=== PATIENT | male | born 1990 | race Caucasian/White ===

== ENCOUNTER 2021-08-26 21:12 | Inpatient (IN) | payer OTHER, SELFPAY ==
--- NOTE | ~2021-08-26 | FL_ITS ---
EXAMINATION: XR FLUOROSCOPY WITH IMAGES CLINICAL INFORMATION: Right renal stone COMPARISON: Abdomen CT from 08/26/2021 TECHNIQUE: Fluoroscopy performed by Dr. Joaquin Wilson. Fluoroscopy time: 48.2 seconds Dose: 17.95 mGy Images: 1 image is saved from the procedure. FL/FL guidance in OR FINDINGS AND IMPRESSION: No diagnostic images are provided. Please refer to the urology procedure report. The image presented was acquired after right ureteral stent placement.
--- NOTE | ~2021-08-26 | CT_ITS ---
EXAMINATION: CT ABDOMEN AND PELVIS WITH CONTRAST CLINICAL INFORMATION: Flank pain. COMPARISON: None TECHNIQUE: Multidetector volumetric images were obtained from the superior aspect of the liver through the pubic symphysis following administration 85 mL of Omnipaque 350 intravenous contrast. Sagittal and coronal reformatted images were obtained on the technologist's workstation. Oral contrast: No This CT examination was performed using dose optimization techniques as appropriate, variously including the following: *Automated exposure control *Adjustment of mA and/or kV according to patient size (this includes techniques or standardized protocols for targeted exams where dose is matched to indication/reason for exam; i.e. extremities or head) *Use of iterative reconstruction technique DLP: 750 mGy-cm FINDINGS: LUNG BASES: The visualized lung bases are unremarkable. LIVER, GALLBLADDER, AND BILIARY TREE: The liver is normal in size, shape, and attenuation. No focal hepatic lesion or biliary ductal dilatation is present. The gallbladder is unremarkable with no evidence of radiopaque gallstones, gallbladder wall thickening, or obvious pericholecystic inflammatory changes. PANCREAS: Unremarkable. SPLEEN: Unremarkable. ADRENAL GLANDS: Unremarkable. KIDNEYS AND URETERS: The kidneys are normal in size, shape, and attenuation. There is a 0.7 cm stone within the mid right ureter at the level of the L5-S1 intervertebral disc. This measures approximately 560 Hounsfield units and is located 15.7 cm from the posterior axillary line. There is mild proximal hydroureteronephrosis with mild delayed contrast excretion at the right kidney. No additional renal or ureteral stone is identified. No left-sided hydroureteronephrosis. BLADDER: Partially distended and unremarkable. GASTROINTESTINAL TRACT: No bowel wall thickening or associated inflammatory change. No small or large bowel obstruction. Unremarkable appendix. PERITONEAL CAVITY: No intra-abdominal free air or free fluid. No intra-abdominal mass or organized fluid collection/abscess formation. ABDOMINAL WALL: No significant hernia is appreciated. LYMPH NODES: Normal. VASCULAR: Unremarkable. PELVIC VISCERA: The prostate and seminal vesicles are unremarkable. OSSEOUS STRUCTURES: Unremarkable. CT/CT abdomen pelvis w con IMPRESSION: Mid/distal right ureteral stone measuring up to 0.7 cm the level of the L5-S1 intervertebral disc. Mild proximal hydroureteronephrosis with delayed contrast excretion on the right. No additional renal or ureteral stone. No left-sided hydroureteronephrosis. Fleischner guidelines were followed.
[2021-08-26 21:22] VITALS: BP 171/92; PULSE 64; RESP 20; TEMP 36.4; O2SAT 99; BMI 35.2
[2021-08-26 21:36] LABS: MANUAL DIFF FLAG NO
[2021-08-26 21:38] LABS: Basophils Absolute Auto 0.1 X10*3/uL (0.0-0.2); Basophils Percent Auto 0.6 % (0-2); Eosinophils Absolute Auto 0.1 X10*3/uL (0.0-0.4); Eosinophils Percent Auto 0.9 % (0-4); Hematocrit 41.2 % (42.0-52.0); Hemoglobin 13.7 g/dl (14.0-18.0); Imm Gran Abs Auto 0.04 X10*3/uL (0.00-0.03); Imm Gran Pct Auto 0.3 % (0.0-0.4); Lymphocytes Percent Auto 29.8 % (20-40); Mean Corpuscular HGB Conc 33.3 g/dl (31.0-36.0); Mean Corpuscular Hemoglobin 29.8 pg (27.0-33.0); Mean Corpuscular Volume 89.6 fL (80.0-98.0); Mean Platelet Volume 9.1 fL (9.4-12.4); Monocytes Absolute Auto 1.1 X10*3/uL (0.1-1.2); Monocytes Percent Auto 8.1 % (2-11); Neutrophils Absolute Auto 8.2 x10*3/uL (2.0-8.3); Neutrophils Percent Auto 60.3 % (45-73); Platelet Count 316 X10*3/uL (160-400); Red Cell Distribution Width 12.7 % (11.0-16.0); White Blood Count 13.5 X10*3/uL (4.8-10.8)
[2021-08-26 21:58] LABS: Alanine Aminotransferase 25 U/L (0-40); Albumin Level 4.6 g/dL (3.5-5.0); Alkaline Phosphatase 86 U/L (39-117); Anion Gap 15 (12-20); Aspartate Amino Transferase 21 U/L (5-37); Bilirubin Total 0.3 mg/dL (0.0-1.0); Blood Urea Nitrogen 14 mg/dL (9-16); Calcium 9.4 mg/dL (8.4-10.2); Carbon Dioxide 26 mmol/L (22-29); Chloride 103 mmol/L (96-108); Estimated Glomerular Filt Rate 53; Glucose Random 114 mg/dL (60-115); Potassium 4.1 mmol/L (3.3-5.1); Sodium 140 mmol/L (135-145); Total Protein 7.4 g/dL (6.5-8.0)
[2021-08-26] MEDS: iohexoL 350 MG/ML 100 ML INFUS..BTL IV (22:28)
[2021-08-26 22:33] LABS: COVID-19 Test Negative (Negative)
[2021-08-26] MEDS: 0.9 % Sodium Chloride 1,000 ML 999 ML IV (22:34)
[2021-08-26] MEDS: Ketorolac Tromethamine 30 MG/ML VIAL 15 MG IVPUSH (22:34)
[2021-08-26] MEDS: ondansetron HCL 4 MG/2 ML VIAL IVPUSH (22:35)
[2021-08-26] MEDS: Acetaminophen 325 MG TABLET 975 MG PO (22:37)
[2021-08-26] MEDS: fentaNYL citrate/PF 100 MCG/2 ML VIAL 25 MCG IVPUSH (23:34)
[2021-08-26 23:40] VITALS: BP 150/71; RESP 16
--- NOTE | 2021-08-26 23:41 | ED.ABDPAIN ---
HPI - Abdominal Pain General Chief Complaint: Abdominal Pain Stated Complaint: Abdominal Pain Time Seen by Provider: 08/26/21 22:04 Source: patient Mode of arrival: ambulatory History of Present Illness HPI narrative: this is a 31-year-old male with history of renal colic and presents with right-sided abdominal pain that is been ongoing for approximately 1.5 weeks and associated chills as well as intermittent nausea and vomiting and difficulty with urinating. Related Data Allergies Allergy/AdvReac Type Severity Reaction Status Date / Time penicillin V Allergy Rash Verified 08/26/21 21:21 Penicillins Allergy Rash Verified 08/26/21 21:21 Review of Systems Review of Systems Pertinent positives and negatives as stated in HPI 10 point review of systems is otherwise negative. Physical Exam Vital Signs: Vital Signs: Last Vital Signs Temp 97.5 F 08/26/21 21:22 Pulse 64 08/26/21 21:22 Resp 16 08/26/21 23:40 BP 150/71 H 08/26/21 23:40 Pulse Ox 99 08/26/21 21:22 BMI result Body Mass Index 35.2 VITAL SIGNS: Reviewed. GENERAL: Well developed, well nourished, in no acute distress. HEAD: Normocephalic/atraumatic EYES: PERRLA, EOMI OROPHARYNX: no oral lesions noted, posterior pharynx clear LUNGS: Normal breath sounds. No adventitious sounds or accessory muscle use. SpO2<99> CARDIOVASCULAR: Regular rate and rhythm without noted murmurs ABDOMEN: Soft, non-tender, non-distended with bowel sounds, Flank tenderness NEUROLOGIC: Alert and oriented x 4. Strength and sensation to light touch were grossly intact x 4. Course Course Course Narrative: 31-year-old male with history and clinical presentation consistent with renal colic and a review of all investigations patient has noted LISBETH with difficulty on urination and noted mid distal ureterolithiasis. Combination pain regimen administered as well as IV fluids and will speak with the urologist. 0015: suspect infection. Review of all investigations demonstrates ureterolithiasis with corresponding LISBETH and leukocytosis. I discussed this case with Urology who recommends admission to medicine and will follow up with patient in the morning. I discussed with the inpatient hospitalist who accepts admission. MDM - Abdominal Pain Lab Data Result diagrams: 08/26/21 21:31 08/26/21 21:31 Labs: Lab Results 08/26/21 08/26/21 08/26/21 Range/Units 21:31 21:31 22:10 WBC 13.5 H (4.8-10.8) X10*3/uL RBC 4.60 (4.60-5.80) X10*6/uL Hgb 13.7 L (14.0-18.0) g/dl Hct 41.2 L (42.0-52.0) % MCV 89.6 (80.0-98.0) fL MCH 29.8 (27.0-33.0) pg MCHC 33.3 (31.0-36.0) g/dl RDW 12.7 (11.0-16.0) % Plt Count 316 (160-400) X10*3/uL MPV 9.1 L (9.4-12.4) fL Immature Gran % (Auto) 0.3 (0.0-0.4) % Neut % (Auto) 60.3 (45-73) % Lymph % (Auto) 29.8 (20-40) % [place] % (Auto) 8.1 (2-11) % Eos % (Auto) 0.9 (0-4) % Baso % (Auto) 0.6 (0-2) % Lymph # (Auto) 4.0 (1.2-4.9) X10*3/uL [place] # (Auto) 1.1 (0.1-1.2) X10*3/uL Eos # (Auto) 0.1 (0.0-0.4) X10*3/uL Baso # (Auto) 0.1 (0.0-0.2) X10*3/uL Abs Immat Gran (auto) 0.04 H (0.00-0.03) X10*3/uL Absolute Neuts (auto) 8.2 (2.0-8.3) x10*3/uL Absolute Nucleated RBC 0.000 (0.0-0.012) X10*3/uL Nucleated RBC % (auto) 0.0 (0.0-0.2) /100WBC Sodium 140 (135-145) mmol/L Potassium 4.1 (3.3-5.1) mmol/L Chloride 103 (96-108) mmol/L Carbon Dioxide 26 (22-29) mmol/L Anion Gap 15 (12-20) BUN 14 (9-16) mg/dL Creatinine 1.55 H (0.5-1.4) mg/dL Estim Creat Clear Calc 80.0 Estimated GFR 53 Random Glucose 114 (60-115) mg/dL Calcium 9.4 (8.4-10.2) mg/dL Total Bilirubin 0.3 (0.0-1.0) mg/dL AST 21 (5-37) U/L ALT 25 (0-40) U/L Alkaline Phosphatase 86 (39-117) U/L Total Protein 7.4 (6.5-8.0) g/dL Albumin 4.6 (3.5-5.0) g/dL Urine Color Urine Appearance Urine pH (5.0-8.0) Ur Specific [place] (1.005-1.025) Urine Protein (NEG-TRACE) MG/DL Urine Glucose (UA) (NEG) MG/DL Urine Ketones (NEG) MG/DL Urine Blood (NEG) Urine Nitrite (NEG) Ur Leukocyte Esterase (NEG) Urine RBC (0) /HPF Urine WBC (0-4) /HPF Ur Squamous Epith Cells /LPF Urine Bacteria /LPF Urine Mucus /LPF COVID-19 (GIAN) Negative (Negative) COVID-19 Clin Com See Note 08/26/21 Range/Units 23:48 WBC (4.8-10.8) X10*3/uL RBC (4.60-5.80) X10*6/uL Hgb (14.0-18.0) g/dl Hct (42.0-52.0) % MCV (80.0-98.0) fL MCH (27.0-33.0) pg MCHC (31.0-36.0) g/dl RDW (11.0-16.0) % Plt Count (160-400) X10*3/uL MPV (9.4-12.4) fL Immature Gran % (Auto) (0.0-0.4) % Neut % (Auto) (45-73) % Lymph % (Auto) (20-40) % [place] % (Auto) (2-11) % Eos % (Auto) (0-4) % Baso % (Auto) (0-2) % Lymph # (Auto) (1.2-4.9) X10*3/uL [place] # (Auto) (0.1-1.2) X10*3/uL Eos # (Auto) (0.0-0.4) X10*3/uL Baso # (Auto) (0.0-0.2) X10*3/uL Abs Immat Gran (auto) (0.00-0.03) X10*3/uL Absolute Neuts (auto) (2.0-8.3) x10*3/uL Absolute Nucleated RBC (0.0-0.012) X10*3/uL Nucleated RBC % (auto) (0.0-0.2) /100WBC Sodium (135-145) mmol/L Potassium (3.3-5.1) mmol/L Chloride (96-108) mmol/L Carbon Dioxide (22-29) mmol/L Anion Gap (12-20) BUN (9-16) mg/dL Creatinine (0.5-1.4) mg/dL Estim Creat Clear Calc Estimated GFR Random Glucose (60-115) mg/dL Calcium (8.4-10.2) mg/dL Total Bilirubin (0.0-1.0) mg/dL AST (5-37) U/L ALT (0-40) U/L Alkaline Phosphatase (39-117) U/L Total Protein (6.5-8.0) g/dL Albumin (3.5-5.0) g/dL Urine Color YELLOW Urine Appearance HAZY Urine pH 6.0 (5.0-8.0) Ur Specific [place] 1.025 (1.005-1.025) Urine Protein 1+ H (NEG-TRACE) MG/DL Urine Glucose (UA) NEG (NEG) MG/DL Urine Ketones NEG (NEG) MG/DL Urine Blood 3+ H (NEG) Urine Nitrite NEG (NEG) Ur Leukocyte Esterase NEG (NEG) Urine RBC 50-75 H (0) /HPF Urine WBC 5-9 H (0-4) /HPF Ur Squamous Epith Cells 1+ /LPF Urine Bacteria TRACE /LPF Urine Mucus 1+ /LPF COVID-19 (GIAN) (Negative) COVID-19 Clin Com Discharge Plan Discharge Clinical Impression: Renal colic, Ureterolithiasis, LISBETH (acute kidney injury) Patient Disposition: Admitted As Inpatient [facility] Past Medical History Source: nursing notes reviewed Medical History Asthma Asthma Tourette syndrome Social History Social History Patient Tobacco Use Status: Never used Tobacco Use of substances other than those prescribed or required for medical reasons: Yes Substance Use Type: Marijuana Substance Use Frequency: Occasionally Advance Directives: No Advance Directives Information Provided: Yes
[2021-08-26 23:53] LABS: Appearance Urine HAZY; Color Urine YELLOW; Glucose Urine UA NEG (NEG); Leukocyte Esterase Urine NEG (NEG); Nitrite Urine NEG (NEG); Specific Gravity - Urine 1.025 (1.005-1.025); UACC Culture Trigger NO; Urine Blood 3+ (NEG); Urine Ketones NEG (NEG); Urine Protein 1+ MG/DL (NEG-TRACE)
[2021-08-27] VITALS (11 sets, daily range): BP systolic 115–166; BP diastolic 52–95; PULSE 58–155; RESP 16–20; TEMP 36.5–36.9; O2SAT 97–100
[2021-08-27 00:01] LABS: Bacteria Urine TRACE /LPF; Mucus Urine 1+ /LPF; RBC Urine 50-75 /HPF (0); Squamous Epithelial Cell Urine 1+ /LPF; UACC CULT YES
[2021-08-27] MEDS: Tamsulosin HCL 0.4 MG CAPSULE PO ×2 (00:21→07:37)
[2021-08-27] MEDS: HYDROmorphone HCl 0.5 MG/0.5 ML SYRINGE 0.25 MG IVPUSH (00:21)
[2021-08-27] MEDS: 0.9 % Sodium Chloride 1,000 ML 999 ML IV (01:32)
[2021-08-27] MEDS: 0.9 % Sodium Chloride 1,000 ML 50 ML IVCONT (01:32)
[2021-08-27] MEDS: cefTRIAXone sodium 1 GM in 0.9 % Sodium Chloride 50 ML IV (01:33)
[2021-08-27 01:34] LABS: Lactic Acid 0.7 mmol/L (0.5-2.0)
[2021-08-27] MEDS: Magnesium Hydrox/Alum Hydrox 30 ML ORAL.SUSP PO (02:05)
[2021-08-27] MEDS: Lidocaine HCl Viscous 2 % 15 ML SOLUTION 10 ML MUCOUS MEM (02:06)
[2021-08-27] MEDS: levoFLOXacin/D5W 750 MG/150 ML PIGGYBACK 100 MG IV ×2 (02:29→22:16)
--- NOTE | 2021-08-27 02:52 | PC.NURSE ---
pt report feeling better after being medicated. plan is for pt to be admitted. Will Continue to monitor.
--- NOTE | 2021-08-27 03:03 | PM.IMHP ---
History of Present Illness Date of Service: 08/27/21 Chief Complaint: right flank pain 31-year-old male with a past medical history of ADHD, Tauretts, tobacco dependence, history of kidney stones presented to the hospital with a chief complaint of right flank pain. Patient reports that over the past 10 days he has been having right flank pain which has been gradually worsening and today had severe pain hence decided to come to the ER for further evaluation. Mentioned that pain located on the right lower abdomen into the side and radiating to the back; denies any burning frequency urgency. Denies any fever chills cough. Denies any nausea vomiting diarrhea. Patient denies any chest pain palpitations lightheadedness or dizziness. Review of all other systems is negative except mentioned above ER course: Per ER team patient noted to have right flank tenderness; CT abdomen showed right ureteral stone measuring 0.7 cm with mild proximal hydroureteronephrosis; on labs noted to have LISBETH and urinalysis slightly abnormal - question UTI-patient empirically given antibiotics and ER team spoke to the urology consult on-call who suggested admission to the medicine service and be evaluated by Dr. Wilson in the morning. [facility] Medical History Asthma Asthma Tourette syndrome Social History Patient Tobacco Use Status: Never used Tobacco Use of substances other than those prescribed or required for medical reasons: Yes Substance Use Type: Marijuana Substance Use Frequency: Occasionally Advance Directives: No Advance Directives Information Provided: Yes Meds Allergies Allergy/AdvReac Type Severity Reaction Status Date / Time penicillin V Allergy Rash Verified 08/26/21 21:21 Penicillins Allergy Rash Verified 08/26/21 21:21 Active Medications: Current Medications Acetaminophen (Acetaminophen 325 Mg Tablet) 650 mg PO Q6H PRN PRN Reason: Pain, Mild (Pain Scale 1-3) Hydromorphone HCl (Hydromorphone Hcl 0.5 Mg/0.5 Ml Syringe) 0.5 mg IVPUSH Q4H PRN; Protocol PRN Reason: Pain, Severe (Pain Scale 7-10) Sodium Chloride (Ns) 1,000 mls @ 50 mls/hr IVCONT .Q20H NATHALIA Last Admin: 08/27/21 01:32 Dose: 50 mls/hr Documented by: Levofloxacin (Levaquin) 750 mg in 150 mls @ 100 mls/hr IV Q24H [facility] Melatonin (Melatonin 3 Mg Tablet) 6 mg PO BEDTIME PRN PRN Reason: Insomnia Senna (Sennosides 8.6 Mg Tablet) 17.2 mg PO BEDTIME PRN PRN Reason: Constipation Sodium Chloride (0.9 % Sodium Chloride Flush 3 Ml Syringe) 3 ml IVFLUSH QSHIFT NATHALIA Home Medications Medication Instructions Recorded Confirmed Last Taken Type No Known Home Meds 08/27/21 08/27/21 Unknown History Physical Exam Vital Signs and Narrative: Vital Signs: Last Vital Signs Temp 97.5 F 08/26/21 21:22 Pulse 69 08/27/21 02:51 Resp 16 08/27/21 02:51 BP 116/52 L 08/27/21 02:51 Pulse Ox 97 08/27/21 02:51 BMI result Body Mass Index 35.2 Gen: Appears be in no acute distress HEENT: NCAT, Moist mucosa. Pulmonary: Vesicular breath sounds, fair air entry CVS: Normal S1-S2 Abdomen: BS+, Soft, tender in the right flank; no guarding no rigidity Extremities: Warm well perfused Neuro: Alert and awake. nonfocal Results Labs CBC and Chem 7: 08/26/21 21:31 08/26/21 21:31 Labs: Laboratory Results - last 24 hr 08/26/21 08/26/21 12 21:31 21:31 22:10 MCV 89.6 MCH 29.8 MCHC 33.3 RDW 12.7 Plt Count 316 MPV 9.1 L Immature Gran % (Auto) 0.3 Neut % (Auto) 60.3 Lymph % (Auto) 29.8 [place] % (Auto) 8.1 Eos % (Auto) 0.9 Baso % (Auto) 0.6 Lymph # (Auto) 4.0 [place] # (Auto) 1.1 Eos # (Auto) 0.1 Baso # (Auto) 0.1 Abs Immat Gran (auto) 0.04 H Absolute Neuts (auto) 8.2 Absolute Nucleated RBC 0.000 Nucleated RBC % (auto) 0.0 Anion Gap 15 Estim Creat Clear Calc 80.0 Estimated GFR 53 Random Glucose 114 Lactic Acid Calcium 9.4 Total Bilirubin 0.3 AST 21 ALT 25 Alkaline Phosphatase 86 Total Protein 7.4 Albumin 4.6 Urine Color Urine Appearance Urine pH Ur Specific [place] Urine Protein Urine Glucose (UA) Urine Ketones Urine Blood Urine Nitrite Ur Leukocyte Esterase Urine RBC Urine WBC Ur Squamous Epith Cells Urine Bacteria Urine Mucus COVID-19 (GIAN) Negative COVID-19 Clin Com See Note 08/26/21 08/27/21 23:48 01:16 MCV MCH MCHC RDW Plt Count MPV Immature Gran % (Auto) Neut % (Auto) Lymph % (Auto) [place] % (Auto) Eos % (Auto) Baso % (Auto) Lymph # (Auto) [place] # (Auto) Eos # (Auto) Baso # (Auto) Abs Immat Gran (auto) Absolute Neuts (auto) Absolute Nucleated RBC Nucleated RBC % (auto) Anion Gap Estim Creat Clear Calc Estimated GFR Random Glucose Lactic Acid 0.7 Calcium Total Bilirubin AST ALT Alkaline Phosphatase Total Protein Albumin Urine Color YELLOW Urine Appearance HAZY Urine pH 6.0 Ur Specific [place] 1.025 Urine Protein 1+ H Urine Glucose (UA) NEG Urine Ketones NEG Urine Blood 3+ H Urine Nitrite NEG Ur Leukocyte Esterase NEG Urine RBC 50-75 H Urine WBC 5-9 H Ur Squamous Epith Cells 1+ Urine Bacteria TRACE Urine Mucus 1+ COVID-19 (GIAN) COVID-19 Clin Com Imaging Radiologist's Impressions: Impressions Abdomen/Pelvis CT 08/26/21 22:34 IMPRESSION: Mid/distal right ureteral stone measuring up to 0.7 cm the level of the L5-S1 intervertebral disc. Mild proximal hydroureteronephrosis with delayed contrast excretion on the right. No additional renal or ureteral stone. No left-sided hydroureteronephrosis. Fleischner guidelines were followed. Assessment and Plan (1) Renal colic: Status: Acute (2) LISBETH (acute kidney injury): Status: Acute 31-year-old male with a past medical history of ADHD, Tauretts, tobacco dependence, history of kidney stones presented to the hospital with a chief complaint of right flank pain. Noted to have right ureteral stone measuring 0.7 cm/ LISBETH/ UTI. Admitted for further management. Right ureteral stone/mild proximal hydronephrosis: Pain control. Urology was made aware. Pending further inputs. ?UTI: Continue Empiric Levaquin. Follow up cultures. Microscopic hematuria- in the setting of ureteral calculus LISBETH: Gentle fluids.? Postrenal. Urology to see the patient morning. Avoid nephrotoxins. Tobacco dependence: Patient mentioned that he stopped smoking cigarettes cold . DVT prophylaxis: SCD boots Code status: Full code Quality Stroke Does the patient have a stroke diagnosis?: No VTE Prior VTE?: No VTE Risk Level:: Medical - moderate - high VTE Device Contraindication: N/A - Device Ordered VTE Drug Contraindication: Treatment Not Indicated
[2021-08-27 06:35] LABS: MANUAL DIFF FLAG NO
[2021-08-27 06:39] LABS: Basophils Percent Auto 0.4 % (0-2); Eosinophils Absolute Auto 0.1 X10*3/uL (0.0-0.4); Eosinophils Percent Auto 0.6 % (0-4); Hematocrit 39.2 % (42.0-52.0); Hemoglobin 12.8 g/dl (14.0-18.0); Imm Gran Abs Auto 0.07 X10*3/uL (0.00-0.03); Imm Gran Pct Auto 0.7 % (0.0-0.4); Lymphocytes Absolute Auto 1.6 X10*3/uL (1.2-4.9); Mean Corpuscular HGB Conc 32.7 g/dl (31.0-36.0); Mean Corpuscular Hemoglobin 29.6 pg (27.0-33.0); Mean Corpuscular Volume 90.7 fL (80.0-98.0); Monocytes Absolute Auto 0.7 X10*3/uL (0.1-1.2); Monocytes Percent Auto 7.2 % (2-11); Neutrophils Percent Auto 74.1 % (45-73); Platelet Count 287 X10*3/uL (160-400); Red Blood Count 4.32 X10*6/uL (4.60-5.80); Red Cell Distribution Width 12.5 % (11.0-16.0); White Blood Count 9.5 X10*3/uL (4.8-10.8)
[2021-08-27 06:52] LABS: Anion Gap 11 (12-20); Blood Urea Nitrogen 10 mg/dL (9-16); Calcium 8.3 mg/dL (8.4-10.2); Carbon Dioxide 24 mmol/L (22-29); Chloride 109 mmol/L (96-108); Creatinine Clr Calc Pharmacy 131.9; Estimated Glomerular Filt Rate > 60; Glucose Random 110 mg/dL (60-115); Potassium 3.9 mmol/L (3.3-5.1); Sodium 140 mmol/L (135-145)
[2021-08-27] MEDS: 0.9 % Sodium Chloride Flush 3 ML SYRINGE IVFLUSH (07:00)
[2021-08-27] MEDS: 0.9 % Sodium Chloride 1,000 ML 100 ML IVCONT ×2 (07:01→17:06)
[2021-08-27] MEDS: HYDROmorphone HCl 0.5 MG/0.5 ML SYRINGE IVPUSH ×2 (07:37→12:49)
--- NOTE | 2021-08-27 12:32 | MHC.CM.PN ---
Addendum entered by Radha Scott 08/27/21 15:41: HCP COMPLETED SENT TO MEDICAL RECORDS Original Note: CM MET WITH PT AND GF AT BEDSIDE. PT REPORTS HE LIVES WITH HIS S/O AND IS INDEPENDENT WITH ALL CARE/MOBILITY PT DENIES USE OF DME OR HOME /COMMUNITY SERVICES PT DOES NOT KNOW THE NAME OF HIS PCP BUT REPORTS HE GOES TO [address] [place] [address] IN [facility] PT WILL COMPLETE A HCP TODAY NAMING HIS S/O, ALLI REYES DE LEON ([phone]) AND HIS MOTHER, KISHA CARLOS ([phone]) HIS PRIMARY AND ALTERNATE AGENTS RESPECTIVELY PTS DC PLAN IS HOME WITH NO SERVICES PT WILL ARRANGE HIS OWN TRANSPORT AT DC
--- NOTE | 2021-08-27 12:57 | PM.UROCN ---
History of Present Illness Consult details Consult date: 08/27/21 Narrative: Gustavo is a pleasant male Known stone former Presents with 2 day history of right-sided flank pain nausea and vomiting Imaging shows There is a 0.7 cm stone within the mid right ureter at the level of the L5-S1 intervertebral disc. This measures approximately 560 Hounsfield units and is located 15.7 cm from the posterior axillary line. There is mild proximal hydroureteronephrosis with mild delayed contrast excretion at the right kidney. No additional renal or ureteral stone is identified. No left-sided hydroureteronephrosis. Pain is currently temporized with parental administration Recommend intervention This will be organized Review of Systems Constitutional: Constitutional: Reports as per HPI and Reports no additional constitutional complaints Cardiovascular: Cardiovascular: Reports as per HPI and Reports no additional cardiovascular complaints Respiratory: Respiratory: Reports as per HPI and Reports no additional respiratory complaints Gastrointestinal: Gastrointestinal: Reports as per HPI and Reports no additional gastrointestinal complaints Genitourinary: Genitourinary: Reports as per HPI Musculoskeletal: Musculoskeletal: Reports no additional musculoskeletal complaints and Reports as per HPI Neurologic: Reports system reviewed and no additional complaints, except as documented and Reports as per HPI [facility] Past Medical History Medical History Asthma Asthma Tourette syndrome Social History Social History Patient Tobacco Use Status: Never used Tobacco Use of substances other than those prescribed or required for medical reasons: Yes Substance Use Type: Marijuana Substance Use Frequency: Occasionally Advance Directives: No Advance Directives Information Provided: Yes service: No Current occupational status: unemployed Meds Allergies Allergy/AdvReac Type Severity Reaction Status Date / Time penicillin V Allergy Rash Verified 08/26/21 21:21 Penicillins Allergy Rash Verified 08/26/21 21:21 Active Medications: Current Medications Acetaminophen (Acetaminophen 325 Mg Tablet) 650 mg PO Q6H PRN PRN Reason: Pain, Mild (Pain Scale 1-3) Hydromorphone HCl (Hydromorphone Hcl 0.5 Mg/0.5 Ml Syringe) 0.5 mg IVPUSH Q4H PRN; Protocol PRN Reason: Pain, Severe (Pain Scale 7-10) Last Admin: 08/27/21 12:49 Dose: 0.5 mg Documented by: Levofloxacin (Levaquin) 750 mg in 150 mls @ 100 mls/hr IV Q24H [facility] Sodium Chloride (Ns) 1,000 mls @ 100 mls/hr IVCONT .Q10H [facility] Last Admin: 08/27/21 07:01 Dose: 100 mls/hr Documented by: Melatonin (Melatonin 3 Mg Tablet) 6 mg PO BEDTIME PRN PRN Reason: Insomnia Senna (Sennosides 8.6 Mg Tablet) 17.2 mg PO BEDTIME PRN PRN Reason: Constipation Sodium Chloride (0.9 % Sodium Chloride Flush 3 Ml Syringe) 3 ml IVFLUSH QSHIFT [facility] Last Admin: 08/27/21 07:00 Dose: 3 ml Documented by: Tamsulosin HCl (Tamsulosin Hcl 0.4 Mg Capsule) 0.4 mg PO DAILY [facility] Last Admin: 08/27/21 07:37 Dose: 0.4 mg Documented by: Home Medications Medication Instructions Recorded Confirmed Last Taken Type No Known Home Meds 08/27/21 08/27/21 Unknown History Physical Exam Vital Signs: Vital Signs: Last Vital Signs Temp 97.5 F 08/26/21 21:22 Pulse 66 08/27/21 12:05 Resp 19 08/27/21 12:05 BP 118/78 08/27/21 12:05 Pulse Ox 98 08/27/21 12:05 BMI result Body Mass Index 35.2 Const: General: cooperative, healthy appearing, comfortable and no acute distress Orientation/consciousness: patient oriented x3 HENMT: Face and sinus: Yes normal facial exam Mouth: moist mucous membranes Neck: Neck: Yes normal visual inspection, Yes full ROM and Yes trachea midline Chest: Chest palpation & inspection: normal inspection of the chest Resp: Effort & Inspection: normal respiratory effort, able to speak in complete sentences and no respiratory distress GI: Inspection: Yes normal to inspection Back/Spine/Pelvis: Cervical Spine: normal cervical lordosis Thoracic/Lumbar Spine: thoracic and lumbar spine normal to inspection Skin: General skin exam: no rashes or lesions noted Neuro: General: patient oriented x3, tone normal and moves all extremities Extrem: General: Yes normal to inspection and Yes capillary refill normal Results Labs Result diagrams: 08/27/21 06:24 08/27/21 06:24 Labs: Abnormal lab results 08/26/21 08/26/21 08/26/21 Range/Units 21:31 21:31 23:48 WBC 13.5 H (4.8-10.8) X10*3/uL RBC (4.60-5.80) X10*6/uL Hgb 13.7 L (14.0-18.0) g/dl Hct 41.2 L (42.0-52.0) % MPV 9.1 L (9.4-12.4) fL Immature Gran % (Auto) (0.0-0.4) % Neut % (Auto) (45-73) % Lymph % (Auto) (20-40) % Abs Immat Gran (auto) 0.04 H (0.00-0.03) X10*3/uL Chloride (96-108) mmol/L Anion Gap (12-20) Creatinine 1.55 H (0.5-1.4) mg/dL Calcium (8.4-10.2) mg/dL Urine Protein 1+ H (NEG-TRACE) MG/DL Urine Blood 3+ H (NEG) Urine RBC 50-75 H (0) /HPF Urine WBC 5-9 H (0-4) /HPF 08/27/21 08/27/21 Range/Units 06:24 06:24 WBC (4.8-10.8) X10*3/uL RBC 4.32 L (4.60-5.80) X10*6/uL Hgb 12.8 L (14.0-18.0) g/dl Hct 39.2 L (42.0-52.0) % MPV 9.0 L (9.4-12.4) fL Immature Gran % (Auto) 0.7 H (0.0-0.4) % Neut % (Auto) 74.1 H (45-73) % Lymph % (Auto) 17.0 L (20-40) % Abs Immat Gran (auto) 0.07 H (0.00-0.03) X10*3/uL Chloride 109 H (96-108) mmol/L Anion Gap 11 L (12-20) Creatinine (0.5-1.4) mg/dL Calcium 8.3 L D (8.4-10.2) mg/dL Urine Protein (NEG-TRACE) MG/DL Urine Blood (NEG) Urine RBC (0) /HPF Urine WBC (0-4) /HPF Short CBC 08/26/21 12 Range/Units 21:31 06:24 WBC 13.5 H 9.5 (4.8-10.8) X10*3/uL Hgb 13.7 L 12.8 L (14.0-18.0) g/dl Hct 41.2 L 39.2 L (42.0-52.0) % Plt Count 316 287 (160-400) X10*3/uL BMP 08/26/21 08/27/21 21:31 06:24 Sodium 140 140 Potassium 4.1 3.9 Chloride 103 109 H Carbon Dioxide 26 24 BUN 14 10 Creatinine 1.55 H 0.94 Calcium 9.4 8.3 L D Liver Function 08/26/21 Range/Units 21:31 Total Bilirubin 0.3 (0.0-1.0) mg/dL AST 21 (5-37) U/L ALT 25 (0-40) U/L Alkaline Phosphatase 86 (39-117) U/L Albumin 4.6 (3.5-5.0) g/dL Urine 08/26/21 Range/Units 23:48 Urine Color YELLOW Urine Appearance HAZY Urine pH 6.0 (5.0-8.0) Ur Specific [place] 1.025 (1.005-1.025) Urine Protein 1+ H (NEG-TRACE) MG/DL Urine Glucose (UA) NEG (NEG) MG/DL All other labs normal. Assessment and Plan (1) Ureterolithiasis: Status: Acute Ureteroscopy We discussed the nature of the decision and reasonable alternatives for performing the above surgery. Interventions include chemical dissolution, ESWL, ureteroscopy with laser lithotripsy and stent placement, PCNL. Options such as medical therapy were discussed. The relative uncertainties and benefits related to each alternate procedure were adequately discussed. General surgical risks including, but not limited to, pain, bleeding, infection, myocardial infarction, pulmonary embolus, deep vein thrombosis and cerebrovascular accident which may result in further hospitalization were discussed. Full disclosure of the procedure as well as all major risks, benefits and complications were discussed including but not limited to damage to the urethra, bladder and kidney infection, damage to the ureter, stent migration or malposition, scarring to the renal pelvis, remnant stone fragments, subsequent stone passage with need for secondary procedures. The overall secondary procedure rate is approximately 10-15%. The success rate of the procedure was discussed. Success of the procedure in the short-term does not necessarily guarantee that long-term success will be maintained. Suitable follow up will need to be maintained. The patient showed understanding of discussion and wishes to proceed with - cystoscopy, retrograde, ureteroscopy, possible lithotripsy/stone basketing and stent on the right side Procedures Date of Service Date of Service: 08/27/21
--- NOTE | 2021-08-27 14:11 | PM.EVENT ---
Event Note Date of Service: 08/27/21 Event Note: Patient admitted with 2 day history of right-sided flank pain nausea and vomiting, CT abdomen showed 0.7 cm stone right ureter with right hydronephrosis On examination Resting comfortably Awake alert x3 Abdomen soft nontender Extremities no edema Right ureteral stone/mild proximal hydronephrosis Continue IV fluids pain control, seen by Dr. Wilson will under go cystoscopy and removal of stone, continue NPO. ?UTI: Continue Empiric? Levaquin, WBC normalized, UA showed trace bacteria follow cultures ,Microscopic hematuria related to ureteral calculus ?LISBETH: Creatinine normalized continue IV fluid Tobacco dependence:? Smoking cessation advised.
[2021-08-27] MEDS: ondansetron HCL 4 MG/2 ML VIAL IVPUSH ×2 (16:20→20:32)
--- NOTE | 2021-08-27 16:22 | PC.NURSE ---
vomitted a small amt, zofran given, skin wpd, sr on monitor
--- NOTE | 2021-08-27 18:40 | MHC.SHP ---
Pre-Procedural Eval Section A Date of Service: 08/27/21 The patient is an INPATIENT: Yes Changes since office visit: No Cold of Flu in the past 2 weeks, No New Medical Problems, No Changes in Medication and No Patient answered all questions The History & Physical has been completed within 30 days and I have reviewed it.: Yes Section B Chief Complaint: Renal Colic Allergies: Allergies Allergy/AdvReac Type Severity Reaction Status Date / Time penicillin V Allergy Rash Verified 08/26/21 21:21 Penicillins Allergy Rash Verified 08/26/21 21:21 Plan Diagnosis/Plan: Unchanged (Cystoscopy, right retrograde, right ureteroscopy, laser lithotripsy, stent placement) I have reviewed the history and physical and performed a pertinent physical examination on my patient. No changes have occurred unless specified.
--- NOTE | 2021-08-27 19:02 | PC.NURSE ---
REVIEW ANTIBIOTICS GIVEN IN E.R. PER DR. COOK NO ADDITIONAL PREOP ANTIBIOTIC NEEDED
--- NOTE | 2021-08-27 19:19 | P.CONAN_ITS ---
[facility] Active Problems Active Problems: All Active Problems (Updated 08/27/21 @ 17:56 by Estee Poon RN) Renal colic (Acute) Ureterolithiasis (Acute) LISBETH (acute kidney injury) (Acute) Past Medical History Medical History (Updated 08/27/21 @ 17:56 by Estee Poon, RN) ADHD Asthma Asthma Tourette syndrome Family History Family history of problems with anesthesia: No Surgical History History of Problems with Anesthesia: No Social History Social History Patient Tobacco Use Status: Never used Tobacco Substance Use Type: Marijuana service: No Current occupational status: unemployed Meds Allergies Allergy/AdvReac Type Severity Reaction Status Date / Time penicillin V Allergy Rash Verified 08/26/21 21:21 Penicillins Allergy Rash Verified 08/26/21 21:21 Active Medications: Current Medications Acetaminophen (Acetaminophen 325 Mg Tablet) 650 mg PO Q6H PRN PRN Reason: Pain, Mild (Pain Scale 1-3) Hydromorphone HCl (Hydromorphone Hcl 0.5 Mg/0.5 Ml Syringe) 0.5 mg IVPUSH Q4H PRN; Protocol PRN Reason: Pain, Severe (Pain Scale 7-10) Last Admin: 08/27/21 12:49 Dose: 0.5 mg Documented by: Levofloxacin (Levaquin) 750 mg in 150 mls @ 100 mls/hr IV Q24H [facility] Sodium Chloride (Ns) 1,000 mls @ 150 mls/hr IVCONT .Q6H40M [facility] Last Admin: 08/27/21 17:06 Dose: 100 mls/hr Documented by: Melatonin (Melatonin 3 Mg Tablet) 6 mg PO BEDTIME PRN PRN Reason: Insomnia Ondansetron HCl (Ondansetron Hcl 4 Mg/2 Ml Vial) 4 mg IVPUSH Q8H PRN PRN Reason: Nausea Last Admin: 08/27/21 16:20 Dose: 4 mg Documented by: Senna (Sennosides 8.6 Mg Tablet) 17.2 mg PO BEDTIME PRN PRN Reason: Constipation Sodium Chloride (0.9 % Sodium Chloride Flush 3 Ml Syringe) 3 ml IVFLUSH QSHIFT [facility] Last Admin: 08/27/21 07:00 Dose: 3 ml Documented by: Tamsulosin HCl (Tamsulosin Hcl 0.4 Mg Capsule) 0.4 mg PO DAILY [facility] Last Admin: 08/27/21 07:37 Dose: 0.4 mg Documented by: Home Medications Medication Instructions Recorded Confirmed Last Taken Type No Known Home Meds 08/27/21 08/27/21 Unknown History Exam Exam Date and Time: August 27, 20211918 Height,Weight and Vital Signs: Height 5 ft 7 in Weight 102.058 kg Last Vital Signs Temp 97.9 F 08/27/21 17:51 Pulse 76 08/27/21 17:51 Resp 20 08/27/21 17:51 BP 148/71 H 08/27/21 17:51 Pulse Ox 97 08/27/21 17:51 Pertinent Lab Results Pertinent Lab Results: Laboratory Tests 08/26/21 08/26/21 08/26/21 21:31 21:31 22:10 WBC 13.5 H RBC 4.60 Hgb 13.7 L Hct 41.2 L MCV 89.6 MCH 29.8 MCHC 33.3 RDW 12.7 Plt Count 316 MPV 9.1 L Immature Gran % (Auto) 0.3 Neut % (Auto) 60.3 Lymph % (Auto) 29.8 [place] % (Auto) 8.1 Eos % (Auto) 0.9 Baso % (Auto) 0.6 Lymph # (Auto) 4.0 [place] # (Auto) 1.1 Eos # (Auto) 0.1 Baso # (Auto) 0.1 Abs Immat Gran (auto) 0.04 H Absolute Neuts (auto) 8.2 Absolute Nucleated RBC 0.000 Nucleated RBC % (auto) 0.0 Sodium 140 Potassium 4.1 Chloride 103 Carbon Dioxide 26 Anion Gap 15 BUN 14 Creatinine 1.55 H Estim Creat Clear Calc 80.0 Estimated GFR 53 Random Glucose 114 Lactic Acid Calcium 9.4 Total Bilirubin 0.3 AST 21 ALT 25 Alkaline Phosphatase 86 Total Protein 7.4 Albumin 4.6 Urine Color Urine Appearance Urine pH Ur Specific [place] Urine Protein Urine Glucose (UA) Urine Ketones Urine Blood Urine Nitrite Ur Leukocyte Esterase Urine RBC Urine WBC Ur Squamous Epith Cells Urine Bacteria Urine Mucus COVID-19 (GIAN) Negative COVID-19 Clin Com See Note 08/26/21 08/27/21 08/27/21 23:48 01:16 06:24 WBC 9.5 RBC 4.32 L Hgb 12.8 L Hct 39.2 L MCV 90.7 MCH 29.6 MCHC 32.7 RDW 12.5 Plt Count 287 MPV 9.0 L Immature Gran % (Auto) 0.7 H Neut % (Auto) 74.1 H Lymph % (Auto) 17.0 L [place] % (Auto) 7.2 Eos % (Auto) 0.6 Baso % (Auto) 0.4 Lymph # (Auto) 1.6 [place] # (Auto) 0.7 Eos # (Auto) 0.1 Baso # (Auto) 0.0 Abs Immat Gran (auto) 0.07 H Absolute Neuts (auto) 7.0 Absolute Nucleated RBC 0.000 Nucleated RBC % (auto) 0.0 Sodium Potassium Chloride Carbon Dioxide Anion Gap BUN Creatinine Estim Creat Clear Calc Estimated GFR Random Glucose Lactic Acid 0.7 Calcium Total Bilirubin AST ALT Alkaline Phosphatase Total Protein Albumin Urine Color YELLOW Urine Appearance HAZY Urine pH 6.0 Ur Specific [place] 1.025 Urine Protein 1+ H Urine Glucose (UA) NEG Urine Ketones NEG Urine Blood 3+ H Urine Nitrite NEG Ur Leukocyte Esterase NEG Urine RBC 50-75 H Urine WBC 5-9 H Ur Squamous Epith Cells 1+ Urine Bacteria TRACE Urine Mucus 1+ COVID-19 (GIAN) COVID-19 Clin Com 08/27/21 06:24 WBC RBC Hgb Hct MCV MCH MCHC RDW Plt Count MPV Immature Gran % (Auto) Neut % (Auto) Lymph % (Auto) [place] % (Auto) Eos % (Auto) Baso % (Auto) Lymph # (Auto) [place] # (Auto) Eos # (Auto) Baso # (Auto) Abs Immat Gran (auto) Absolute Neuts (auto) Absolute Nucleated RBC Nucleated RBC % (auto) Sodium 140 Potassium 3.9 Chloride 109 H Carbon Dioxide 24 Anion Gap 11 L BUN 10 Creatinine 0.94 Estim Creat Clear Calc 131.9 Estimated GFR > 60 Random Glucose 110 Lactic Acid Calcium 8.3 L D Total Bilirubin AST ALT Alkaline Phosphatase Total Protein Albumin Urine Color Urine Appearance Urine pH Ur Specific [place] Urine Protein Urine Glucose (UA) Urine Ketones Urine Blood Urine Nitrite Ur Leukocyte Esterase Urine RBC Urine WBC Ur Squamous Epith Cells Urine Bacteria Urine Mucus COVID-19 (GIAN) COVID-19 Clin Com Airway Mallampati Class: III TM Dist: >3cm Neck ROM: Full Assessment and Plan Assessment Anesthesia Assessment: Anesthesia Plan Discussed, Smoking Cess. Discussed and Chart Reviewed Final Anesthetic Review Family History of Problems with Anesthesia: No History of Problems with Anesthesia: No NPO: Yes ASA Class: II Final Preanesthetic Review: Meds/Allgs Chart Reviewed, Consent Obtained/Reviewed and Anes Risks/Benef Reviewed Patient Risk: Intermediate Procedure Risk: Intermediate Anesthetic Plan Anesthetic Plan: GA Disposition: Standard PACU
--- NOTE | 2021-08-27 19:36 | W.PM.OPN ---
Operative Note Operative Note Date of Service: 08/27/21 Narrative: PreOperative Diagnosis: Right distal ureteric stone Post Operative Diagnosis: Right distal ureteric stone Procedure: - cystoscopy, right retrograde - right ureteroscopy, laser lithotripsy, stone basketing - right stent placement Surgeon: Dr Joaquin Wilson Anesthesia: General Indications for procedure: Right distal ureteric stone. Presented with pain, nausea, inability to tolerate orals. Responded to parental care. Imaging showed 6 mm distal right ureteric stone with mild hydronephrosis. Recommendation for intervention. Procedure: After informed consent was verified patient was brought to the operating placed in supine position. Anesthesia was administered per protocol. Patient was placed in modified dorsal lithotomy position and prepped and draped in a sterile fashion. Safety pause time-out and side of surgery confirmed. Antibiotics confirmed. Twenty-two Portuguese cystoscope placed per urethra. Bladder examined. Normal ureteric orifice position. Retrograde examination performed. Filling defect in distal ureter. Sensor guidewire placed. Semi rigid ureteroscopy performed. Stone encountered in distal ureter. Using 360 micron laser fiber stone broken into small pieces. Stone in then removed from ureter with flat wire basket. Semi rigid ureteral scope removed. Wire backloaded into a cystoscope. Six Portuguese by 26 cm double-J stent placed over wire. Good coil seen in bladder and in renal pelvis. Bladder emptied. Patient tolerated the procedure well. Extubated in the operating room. Transferred in stable condition to the recovery area. Pathology: Stone Drains: 6 Portuguese by 26 cm double-J stent
[2021-08-27] MEDS: Phenazopyridine HCL 100 MG TABLET PO (20:32)
[2021-08-27] MEDS: Acetaminophen 325 MG TABLET 650 MG PO (20:34)
[2021-08-27] MEDS: oxyCODONE HCl Immed Release 5 MG TABLET 10 MG PO (20:35)
[2021-08-27] MEDS: Lactated Ringers 1,000 ML 100 ML IVCONT (22:14)
[2021-08-28] VITALS: BP 136/75; PULSE 86; RESP 18; TEMP 36.4; O2SAT 98
[2021-08-28 03:44] VITALS: BP 133/63; PULSE 60; RESP 18; TEMP 36.5; O2SAT 97
[2021-08-28] MEDS: HYDROmorphone HCl 0.5 MG/0.5 ML SYRINGE IVPUSH (06:05)
[2021-08-28 08:00] VITALS: BP 184/103; PULSE 53; RESP 18; TEMP 37.4; O2SAT 97
[2021-08-28] MEDS: traMADoL HCL 50 MG TABLET PO (08:12)
[2021-08-28] MEDS: Tamsulosin HCL 0.4 MG CAPSULE PO (08:12)
--- NOTE | 2021-08-28 09:40 | MHC.CM.PN ---
PLAN IS HOME - SELF CARE. RN AWARE OF PLAN
[2021-08-28 10:13] VITALS: BP 153/85
[2021-08-28 11:50] VITALS: BP 161/89; PULSE 61; RESP 18; TEMP 36.9; O2SAT 97
--- NOTE | 2021-08-28 11:50 | P.DS_ITS ---
DS: Providers Provider Date of Service: 08/28/21 Date of admission: 08/27/21 00:59 Primary care physician: Unknown Physician Consults: 08/27/21 00:58 Consult to Urology Routine Consulting Provider: Joaquin David Reason for consultation: renal stone DS: Diagnosis Discharge Diagnosis (1) Ureterolithiasis: Status: Acute DS: Summary Hospital Course Hospital Course: Chief Complaint:? right flank pain ?31-year-old male with a past medical history of ADHD, Tauretts,? tobacco dependence,? history of kidney stones presented to the hospital with a chief complaint of right flank pain.? Patient reports that over the past 10 days he has been having right flank pain which has been gradually worsening and today had severe pain hence decided to come to the ER for further evaluation.? Mentioned that pain located on the right lower abdomen into the side and radiating to the back; denies any burning frequency urgency.? Denies any fever chills cough.? Denies any nausea vomiting diarrhea.? Patient denies any chest pain palpitations lightheadedness or dizziness.? Review of all other systems is negative except mentioned above ER course: Per ER team patient noted to have right flank tenderness; CT abdomen showed right ureteral stone measuring 0.7 cm with mild proximal hydroureteronephrosis; on labs noted to have LISEBTH and urinalysis slightly abnormal - question UTI- patient empirically given? antibiotics and ER team spoke to the urology consult on-call who suggested admission to the medicine service and be evaluated by Dr. David in the morning. Hospital course 31-year-old gentleman with a past medical history of ADHD, Tauretts,? tobacco dependence,? history of kidney stones presented to the hospital with a chief complaint of right flank pain, diagnosed to have Right ureteral stone/mild pr oximal hydronephrosis, LISBETH patient admitted to medical floor treated with IV fluid and analgesics subsequently underwent cystoscopy ,laser fiber stone broken into small pieces, Stone then removed from ureter with flat wire basket, and a double-J stent placed post procedure patient developed pain treated with analgesics, currently doing better, voiding clear urine, renal function has normalized, urine culture showed no growth therefore patient is being discharged home on Flomax, Naprosyn and Ultram as ordered by Urology patient has been recommended to call Dr. David to make a follow-up appointment for stent removal and also to have follow-up with primary care physician. In regard?Tobacco dependence smoking cessation is advised. Time Spent with Patient Time attestation: Total time spent providing and/or coordinating discharge services: Discharge coordination time: Less than 30 minutes Quality: Stroke Does the patient have a stroke diagnosis?: No Physical Exam Vital Signs: Vital Signs: Last Vital Signs Temp 99.3 F 08/28/21 08:00 Pulse 53 08/28/21 08:00 Resp 18 08/28/21 08:00 BP 153/85 H 08/28/21 10:13 Pulse Ox 97 08/28/21 08:00 BMI result Body Mass Index 35.2 General awake ,alert, no acute distress. Neck no JVD. CVS regular rate rhythm, Respiratory lungs clear to auscultation, no respiratory distress Gastrointestinal abdomen soft, nontender, bowel sounds audible Extremities no edema. Neuro nonfocal patient moving all 4 extremity speech clear. Skin no rash DS: Data Data Completed and Pending Labs on day of discharge: Preliminary micro results at discharge 08/27/21 01:29 Blood Culture - Preliminary Blood - Venous No growth after 24 hours. 08/27/21 01:16 Blood Culture - Preliminary Blood - Venous No growth after 24 hours. Discharge Plan Discharge Patient Disposition: Home, Self-Care Discharge Diagnosis: Nephrolithiasis Referrals: Physician,Unknown J [Primary Care Provider] - 1 Week Discharge Medications: New phenazopyridine [Pyridium] 100 mg tablet 100 mg PO TID PRN (Reason: spasm) 4 Days Qty: 12 RF: 0 tramadol 50 mg tablet 50 mg PO Q6H PRN (Reason: pain (scale score 4-6)) Qty: 14 RF: 0 tamsulosin 0.4 mg capsule 0.4 mg PO BEDTIME 14 Days Qty: 14 RF: 0 naproxen 500 mg tablet 500 mg PO BID PRN (Reason: pain) 7 Days Qty: 14 RF: 0 Discharge Orders: Discharge Order (Routine); Ordered 08/28/21 Ordered By: George Sprague Diet: advance to usual diet Activity on Discharge: As tolerated Stand Alone Forms: Patient Portal Discharge page Care Plan Goals: Nephrolithiasis, drink plenty of fluids take Naprosyn for mild pain take it with food, take ultram for moderate pain, return to check with worsening pain, or blood in urine Health Concerns: Nephrolithiasis Plan of Treatment: Call Dr. Joaquin david to make a follow-up appointment Follow-up with primary care physician in 7-10 days. Assessment: Nephrolithiasis
--- NOTE | 2021-08-28 14:40 | HO.POSTANES ---
Post Anesthesia Evaluation Post Anesthesia Evaluation Vital Signs: Vital Signs Temp Pulse Resp BP Pulse Ox 08/28/21 11:50 98.4 F 61 18 161/89 H 97 08/28/21 10:13 153/85 H 08/28/21 08:00 99.3 F 53 18 184/103 H 97 08/28/21 03:44 97.7 F 60 18 133/63 97 Anesthesia: General LMA Mental Status: Awake Pain Control: Satisfactory Nausea/Vomiting: None Hydration: Adequate Anesthesia-Related Issues: No Anes. Related Issues
== END 2021-08-28 13:50 | disposition home or self-care (01) | DRG 446 ==
LOC: HO.ED 08-27 01:11 → HO.EDOVER 08-27 01:24 → HO.S3 08-27 17:48 → HO.EDOVER 08-27 17:55 → HO.S3 08-27 20:37
PROVIDERS: Urology; Admitting Provider Hospitalist; Emergency Provider Student in an Organized Health Care Education/Training Program; Visit Provider Hospitalist
PROC: 0TC68ZZ Extirpation of Matter from Right Ureter, Via Natural or Artificial Opening Endoscopic (ICD-10-PCS; principal; 2021-08-27 17:50)
DX: N13.6 Pyonephrosis (principal); N17.9 Acute kidney failure, unspecified; F17.210 Nicotine dependence, cigarettes, uncomplicated; Z71.6 Tobacco abuse counseling; Z87.442 Personal history of urinary calculi; Z20.822 Contact with and (suspected) exposure to COVID-19; Z88.0 Allergy status to penicillin; Z79.899 Other long term (current) drug therapy
CPT/HCPCS: 36415; 74177; 80048; 80053; 81001; 83605; 85025; 87040; 87086; 87635; 90686; 99285; C1769; C2617; J0696; J1100; J1170; J1885; J1956; J2250; J2405; J3010; Q9967

== ENCOUNTER 2021-08-30 10:26 | Emergency (ER) | payer OTHER, SELFPAY ==
[2021-08-30 12:47] VITALS: BP 150/80; PULSE 64; RESP 20; TEMP 36.8; O2SAT 98; BMI 35.2
== END 2021-08-30 20:21 | disposition left against medical advice (07) ==
PROVIDERS: Emergency Provider Emergency Medicine
DX: R33.9 Retention of urine, unspecified (principal); Z96.0 Presence of urogenital implants; Z98.890 Other specified postprocedural states
CPT/HCPCS: 51798; 99211; 99282; 99283

== ENCOUNTER → 2021-09-03 13:48 | Outpatient (BNVA) | payer OTHER, SELFPAY | PROVIDERS: Visit Provider Urology | DX: N20.1 Calculus of ureter (principal) | CPT/HCPCS: 52310; 99212 ==

== ENCOUNTER 2021-12-23 19:52 | Emergency (ER) | payer OTHER, SELFPAY ==
--- NOTE | ~2021-12-23 | XR_ITS ---
EXAMINATION: XR SHOULDER, RIGHT CLINICAL INFORMATION: Injury/pain COMPARISON: None TECHNIQUE: 3 plain film views of the right shoulder. FINDINGS: Humeral head is well-seated in the glenoid fossa. No acute fracture or dislocation seen. Acromioclavicular joint unremarkable. Visualized right ribs unremarkable. XR/XR shoulder RT min 2V IMPRESSION: No acute bony abnormality.
[2021-12-23 20:31] VITALS: BP 145/76; PULSE 69; RESP 17; TEMP 36.6; O2SAT 98; BMI 38.5
[2021-12-23] MEDS: Acetaminophen 325 MG TABLET 650 MG PO (20:54)
[2021-12-23] MEDS: Ibuprofen 600 MG TABLET PO (20:55)
[2021-12-23 21:15] VITALS: BP 161/90; PULSE 70; RESP 18; TEMP 36.9; O2SAT 97
--- NOTE | 2021-12-23 21:30 | ED.EXTPRO ---
HPI - Extremity Problem General Chief complaint: Extremity Problem Stated complaint: rt shoulder pain Time Seen by Provider: 12/23/21 21:29 Source: patient Mode of arrival: ambulatory Limitations: no limitations History of Present Illness HPI Narrative: This is a 31-year-old male presenting to the emergency department with right-sided shoulder pain status post heavy lifting at work. Patient tells me he was lifting sheets of siding at work over his head he tells me they are very heavy. He tells me after he pushed the sheets over his head he immediately started experiencing severe right-sided shoulder pain worse with movement better at rest. He denies numbness and tingling. He tells me he is able to move his right shoulder however very painful and when he tries to move it he needs to help himself with his other hand. MD Complaint: joint pain Onset (ago): hour(s) (2) Pain Consistency: constant Location: right Severity scale (1-10): 8 Quality: constant Radiation: none Relieving factors: immobilization Exacerbating factors: range of motion Associated symptoms: denies other symptoms Related Data Previous Rx's Medication Instructions Recorded phenazopyridine 100 mg tablet 100 mg PO TID PRN 4 Days #12 tab 08/27/21 (Pyridium) tamsulosin 0.4 mg capsule 0.4 mg PO BEDTIME 14 Days #14 cap 08/27/21 oxybutynin chloride 5 mg 5 mg PO DAILY #30 tab 08/30/21 tablet,extended release 24 hr oxycodone 5 mg capsule 5 mg PO Q8H PRN #20 cap 08/30/21 sulfamethoxazole 800 1 tab PO BID 5 Days #10 tab 08/30/21 mg-trimethoprim 160 mg tablet (Bactrim DS) sulfamethoxazole 800 1 tab PO BID 3 Days #6 tab 09/03/21 mg-trimethoprim 160 mg tablet (Bactrim DS) lidocaine 5 % topical patch 1 patch TOPICAL DAILY PRN #15 ea 12/23/21 morphine 15 mg immediate release 15 mg PO BID PRN #6 tab 12/23/21 tablet Allergies Allergy/AdvReac Type Severity Reaction Status Date / Time penicillin V Allergy Rash Verified 08/30/21 12:47 Penicillins Allergy Rash Verified 08/30/21 12:47 Review of Systems Review of Systems: Constitutional : No Weight loss, No Fever, No Chills, No Fatigue, No Malaise ENT/Mouth : No sore throat, No Rhinorrhea Eyes: No Eye Pain, No Swelling, No Redness Cardiovascular : No Chest Pain, No SOB, No Dyspnea on Exertion, No Orthopnea, No Edema, No Palpitations Respiratory : No Cough, No Sputum, No Wheezing Gastrointestinal : No Nausea, No Vomiting, No Diarrhea, No Constipation, No abdominal Pain, No Hematochezia, No Melena Genitourinary : No Dysuria, No Urinary Frequency, No Hematuria, Musculoskeletal : + joint pain, No Myalgias, No Joint Swelling Skin : No Skin Lesions, No rash Neuro : No Weakness, No Numbness, No Dizziness, No Headache All other systems reviewed and are negative Yes all other systems are reviewed and are negative [facility] Past Medical History Attestation statement: The following information was validated with the patient. Source: old records reviewed and nursing notes reviewed Medical History ADHD Asthma Asthma Tourette syndrome Social History Social History Household Members: Family Housing: Apartment Do you presently have visiting nurse or other home services: No Patient Tobacco Use Status: Never used Tobacco Substance Use Type: Marijuana Advance Directives: No Advance Directives Information Provided: No service: No Current occupational status: unemployed Physical Exam Vital Signs: Vital Signs: Last Vital Signs Temp 98.4 F 12/23/21 21:15 Pulse 70 12/23/21 21:15 Resp 18 12/23/21 21:15 BP 161/90 H 12/23/21 21:15 Pulse Ox 97 12/23/21 21:15 BMI result Body Mass Index 38.5 VSS Appearance: Alert.? Oriented X3.? No acute distress.? Head: Normocephalic, atraumatic, no step-offs or deformities Eyes: Pupils equal, round and reactive to light.? ENT: Pharynx normal.? Neck: Normal inspection.? Neck supple.? CVS: Normal heart rate and rhythm.? Pulses normal.? Respiratory: No respiratory distress.? Breath sounds normal.? Abdomen: Soft and nontender.? Skin: Skin warm and dry.? Normal skin color.? Normal skin turgor.? Extremities: No lower extremity edema.? No calf ttp. 5/5 strength to bilateral upper and lower extremities + Pain with range of motion to right shoulder particularly with overhead motion concerning for rotator cuff injury. No evident ligament or tendon involvement. Bilateral radial pulses 2+ equal bilateral. No step-offs or deformities. Left side normal. Sensory and motor intact to b/l upper extemities. Cap refil < 2 seconds. Back: No midline tenderness, no C-spine tenderness, full range of motion, no CVA tenderness bilaterally Neuro: Oriented X 3.? No motor deficit.? No sensory deficit. CN 2-12 intact Course Reevaluation(s) Reevaluation #1: Patient able to move right shoulder much better after administration of morphine. Likely rotator cuff tear. Advised him to follow-up with orthopedics in his PCP as he will likely require further imaging such as an MRI. Advised him of worrisome signs and symptoms and advised him to return if any of these Arise. At this time I feel comfortable discharge home with ortho in PCP follow-up. At time of discharge patient had 2+ equal bilateral radial pulses, capillary refill bilaterally to upper extremity less than 2 seconds. Patient able to move his right shoulder without assistance however some pain with range of motion. No step-offs or deformities, no gross abnormalities. Explained to patient that based off of imaging I am unable to rule out ligament or tendon involvement and he will likely require a specialist. Time: 23:32 MDM - Extremity (Nontraumatic) [facility] Narrative Medical decision making narrative: 2130 31 yo m presents w/ work related injury w/ right shoulder pain s/p heavy lifting today. Reports pain worse with ROM PE significant for + Pain with range of motion to right shoulder particularly with overhead motion concerning for rotator cuff injury. No evident ligament or tendon involvement. Bilateral radial pulses 2+ equal bilateral. No step-offs or deformities. Left side normal. Sensory and motor intact to b/l upper extemities. Cap refil < 2 seconds. Low suspicion for fracture dislocation. Likely rotator cuff tear. Plan- xray. Medical Records Attestation: I reviewed the patient's medical records. Lab Data Attestation: I reviewed the patient's lab results. Critical Care Time Critical Care Time Critical Care Time: No Discharge Plan Discharge Clinical Impression: Acute pain of right shoulder, Work related injury Patient Disposition: Home, Self-Care Instructions: Shoulder Pain (ED), Warm Compress or Soak (ED) Additional Instructions: Take your medications as prescribed. Follow-up with your primary care provider this week. Please follow-up with orthopedics within a week. I cannot rule out ligament or tendon involvement you may have a rotator cough injury that may require further imaging such as an MRI for this reason you should see an orthopedic physical therapist. Since this was a work related injury please follow-up with were connection. [phone] Return to the emergency department with new or worsening symptoms. Such as fevers, chills, chest pain, shortness of breath, nausea, vomiting, dizziness, headache, vision changes, lethargy , numbness, tingling, inability to move shoulder, severe pain, shooting pain. In case of emergency call 911 prescription sent to [facility] on [facility] in [place] morphine is a narcotic this has been sent to her pharmacy. Only take this for severe pain. If you are not experiencing severe pain you can take ibuprofen every 6 hours, Tylenol every 4. Please follow-up with your PCP As soon as possible and Orthopedics within a week. Prescriptions: New morphine 15 mg tablet 15 mg PO BID PRN (Reason: pain) Qty: 6 0RF Rx Instructions: Patient can partially filled this prescription upon request lidocaine 5 % adhesive patch,medicated 1 patch topical DAILY PRN (Reason: pain) Qty: 15 0RF Rx Instructions: leave on most painful area for up to 12 hrs No Action sulfamethoxazole-trimethoprim [Bactrim DS] 800-160 mg tablet 1 tab PO BID 5 Days Qty: 10 0RF oxybutynin chloride 5 mg tablet extended release 24hr 5 mg PO DAILY Qty: 30 0RF oxycodone 5 mg capsule 5 mg PO Q8H PRN (Reason: pain) Qty: 20 0RF Rx Instructions: Okay for partial fill upon patient's request phenazopyridine [Pyridium] 100 mg tablet 100 mg PO TID PRN (Reason: spasm) 4 Days Qty: 12 0RF tamsulosin 0.4 mg capsule 0.4 mg PO BEDTIME 14 Days Qty: 14 0RF sulfamethoxazole-trimethoprim [Bactrim DS] 800-160 mg tablet 1 tab PO BID 3 Days Qty: 6 0RF Referrals: [facility] [Provider Group] - 2 weeks Stand Alone Forms: Work/School Release
[2021-12-23] MEDS: Morphine Sulfate 4 MG/ML CARTRIDGE IVPUSH (22:10)
[2021-12-23 23:00] VITALS: RESP 16
== END 2021-12-23 23:45 | disposition home or self-care (01) ==
PROVIDERS: Emergency Provider Internal Medicine
DX: Z04.2 Encounter for examination and observation following work accident (principal); G89.11 Acute pain due to trauma; M25.511 Pain in right shoulder
CPT/HCPCS: 73030; 96374; 99284; J2270

== ENCOUNTER 2023-10-17 09:57 | Outpatient (AMB) | payer OTHER, SELFPAY ==
--- NOTE | 2023-10-17 10:04 | A.OFFPC_ITS ---
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 Transferring care from [facility]. Medical records have not been requested and have received. 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: Present Accompanied by: Spouse Allergies penicillin V Allergy (Verified 10/17/23 10:47) Rash Penicillins Allergy (Verified 10/17/23 10:47) Rash Tobacco use date assessed: 10/17/23 Dental Screening Dental Screen Date: 10/17/23 Did you have a dental visit in the last 12 months?: Yes Did you have a dental problem in the last 6 months where you did not have access to dental care?: No Was dental information given to patient?: Patient has dentist HPI HPI Comments 2 History of Present Illness0 Details 33-year-old male With nephrolithiasis st atus post cystoscopy, ureteroscopy, retro, laser on the right side with stenting August of 2021,ADHD, asthma, Tourette's, marijuana use, tobacco use Specialist: [facility] Here today for L shoulder pain fell and landed on left shoulder about 3 weeks ago initially did not have pain upon waking the next day, had stabbing pain and trouble elevating the shoulder Went to ED at [facility] the following day. Reports xray done and negative for fracture and referred to [facility]. Initial appt tomorrow w/ [facility]. Out of work since this time. Works for [employer]. Cannot reach overhead or bear wt needed to work. Filing for short term disability paperwork to be completed today First day of missed work was 09/23/2023 Filed on 10/03/23 Also reports that he was referred to a engineering test specialist the 1st appointment for this was booked for October [address] This was a result of back pain that he suffered after the fall as well. He reports today that the back pain is fine does not think he will keep this appointment. Be that as it may he is out of work due to the left shoulder pain and restricted range of motion. [facility] Medical History (Updated 10/17/23 @ 11:02 by Sheryl Harris [facility]) History of kidney stones ADHD Tourette syndrome Asthma Asthma Family History (Updated 10/17/23 @ 10:29 by GIGI Cleary) Mother HTN (hypertension) Maternal Grandmother Asthenia HTN (hypertension) Diabetes Other Mental health disorder Social History (Updated 10/17/23 @ 10:05 by GIGI Cleary) Household Members: Family Housing: Apartment Do you presently have visiting nurse or other home services: No Alcohol intake: never Patient Tobacco Use Status: Current everyday Tobacco user Tobacco use type: Cigarette Cigarettes Per Day: 7 e-Cigarette/Vaping Use: Never Used Second Hand Smoke Exposure: Yes Substance Use Type: Marijuana service: No Current occupational status: employed Current occupation: [employer] Cognitive needs: No Hearing needs: No Vision needs: No Questionnaire PHQ-9 Over the last 2 weeks, how often have you been bothered by any of the following problems? 1. Little interest or pleasure in doing things: not at all 2. Feeling down, depressed, or hopeless: several days 3. Trouble falling or staying asleep, or sleeping too much: several days 4. Feeling tired or having little energy: several days 5. Poor appetite or overeating: nearly every day (poor appetite) 6. Feeling bad about yourself - or that you are a failure or have let yourself or your family down: several days 7. Trouble concentrating on things, such as reading the newspaper or watching television: several days 8. Moving or speaking so slowly that other people could have noticed. Or the opposite - being so fidgety or restless that you have been moving around a lot more than usual: several days 9. Thoughts that you would be better off or of hurting yourself in some way: not at all Total score: 9 Source: Developed by Drs. Pollo Castro, Bambi Nieves, Maxime Umanzor and colleagues, with an educational erin from [employer]. Thrive Questionnaire Date Thrive assessed: 10/17/23 I am a: Patient What is your living situation today?: I have a steady place to live Within the past 12 months, did the food you bought not last and you didn't have the money to get more?: Never true Within the past 12 months, did you worry whether your food would run out before you got money to buy more?: Never true Do you have trouble paying for medicines?: No Do you have trouble getting transportation to medical appointments?: No Do you have trouble paying your heating and electricity bill?: No Do you have trouble taking care of your child, family member or friend?: Yes Do you have trouble with day-to-day activities such as bathing, preparing meals, shopping, managing finances, etc.?: Yes Are you currently unemployed and looking for a job?: No Are you interested in more education?: Yes Please select the resources that you would like help with: Education Currently or been in a relationship where the following occur: no concerns reported THRIVE Score: 0 AUDIT C Alcohol Use Questionnaire (AUDIT-C) 1. How often do you have a drink containing alcohol?: Never Total Score: 0 PARAMJIT-7 AMB Questionnaire PARAMJIT-7 Date PARAMJIT - 7 assessed: 10/17/23 Feeling nervous, anxious, or on edge: 3 = Nearly every day Not being able to stop or control worryin = Nearly every day Worrying too much about different things: 3 = Nearly every day Trouble relaxin = Nearly every day Being so restless that it is hard to sit still: 3 = Nearly every day Becoming easily annoyed or irritable: 3 = Nearly every day Feeling afraid as if something awful might happen: 3 = Nearly every day Total PARAMJIT-7 score (0-4 normal; 5-9 mild; 10-14 moderate; 15-21 severe): 21 Source: Developed by Drs. Pollo Castro, Bambi Nieves, Maxime Umanzor and colleagues, with an educational erin from [employer]. Review of Systems Const All systems reviewed & are unremarkable except as noted in HPI and below Physical exam (Primary Care) Vital Signs: Last Vital Signs Pulse 83 10/17/23 10:07 BP 138/90 H 10/17/23 10:07 Pulse Ox 98 10/17/23 10:07 Oxygen Delivery Method Room Air 10/17/23 10:07 BMI result Body Mass Index 37.8 Tobacco/Smoking Status: Tobacco use Status Tobacco use date assessed 10/17/23 10/17/23 10:22 Patient Tobacco Use Status Current everyday Tobacco 10/17/23 10:22 Tobacco use type Cigarette 10/17/23 10:22 e-Cigarette/Vaping Use Never Used 10/17/23 10:22 PHQ-9: PHQ-9 Score PHQ-9: Total score 9 10/17/23 10:27 Thrive Assessment: Date of Thrive Assessment Date Thrive assessed 10/17/23 10/17/23 10:22 Currently or been in a relationship where the following occur: no concerns reported Const Other: Accompanied by Speaking in full sentences Left arm positive radial and ulnar pulse, cap refill within normal limits, hand grasps strong, restricted/limited active range of motion due to pain, reports too much pain to allow me to move the left arm and shoulder through passive range of motion Skin is intact Extrem Shoulder/upper arm images: 2 1. pain on palpation 2. pain on palpation Assessment and Plan Assessment & Plan (1) Injury of left shoulder: Code(s): S49.92XA - Unspecified injury of left shoulder and upper arm, initial encounter Qualifiers: Encounter type: sequela Qualified Code(s): S49.92XS - Unspecified injury of left shoulder and upper arm, sequela Plan: I have advised the patient to keep his appointment with Orthopedics scheduled for tomorrow to evaluate the left shoulder. No new or further orders given that he was already evaluated and treated in the emergency room for this and he has a follow up with specialist tomorrow. I will see him back in 1 month to establish care on his chronic conditions . Please set up for the patient portal (2) Encounters for administrative purpose: Comment: Short-term disability paperwork for employer completed today and returned to the patient Code(s): Z02.9 - Encounter for administrative examinations, unspecified Plan Total time spent caring for the patient today was 45 minutes. This includes time spent before the visit reviewing the chart, time spent during the visit, and time spent after the visit on documentation Coding Level of Care Code New Pt Level 4 (64508) Diagnoses Injury of left shoulder, sequela S49.92XS Encounter type: sequela Encounters for administrative purpose Z02.9
[2023-10-17 10:07] VITALS: BP 138/90; PULSE 83; O2SAT 98; BMI 37.8
== END 2023-10-17 10:59 | disposition home or self-care (01) ==
PROVIDERS: PCP Nurse Practitioner Family; Visit Provider Nurse Practitioner Family
DX: S49.92XA Unspecified injury of left shoulder and upper arm, initial encounter (principal); Z04.2 Encounter for examination and observation following work accident
CPT/HCPCS: 99204

== ENCOUNTER 2023-10-25 08:44 | Outpatient (AMB) | payer OTHER, SELFPAY ==
[2023-10-25 09:42] VITALS: BP 122/82; PULSE 78; RESP 13; TEMP 36.4; O2SAT 99; BMI 39.0
--- NOTE | 2023-10-25 09:42 | MHC.PC.OV ---
Vital Signs 10/25/23 09:42 Height 5 ft 5 in Weight 234 lb 4 oz BMI 39.0 BP 122/82 Blood Pressure Location Rt brachial Position Sitting Respiration 13 Pulse 78 Pulse Source Pulse Oximeter Temp 97.6 F Temp Source Temporal Artery Scan Pulse Oximetry (%) 99 Oxygen Delivery Method Room Air Intake Visit Reasons: Disability forms Center Director Required: No Accompanied by: Self / Same As Patient Allergies penicillin V Allergy (Verified 10/25/23 09:51) Rash Penicillins Allergy (Verified 10/25/23 09:51) Rash Tobacco use date assessed: 10/17/23 Dental Screening Dental Screen Date: 10/25/23 Did you have a dental visit in the last 12 months?: Yes Did you have a dental problem in the last 6 months where you did not have access to dental care?: No Was dental information given to patient?: Patient has dentist HPI HPI Comments History of Present Illness Details 33-year-old male With nephrolithiasis status post cystoscopy, ureteroscopy, retro, laser on the right side with stenting August of 2021,ADHD, asthma, Tourette's, marijuana use, tobacco use Specialist: [facility] Here today for follow-up visit of L shoulder pain fell and landed on left shoulder about 5 weeks ago initially did not have pain upon waking the next day, had stabbing pain and trouble elevating the shoulder Went to ED at [facility] the following day. Reports xray done and negative for fracture and referred to [facility]. Out of work since this time. Works for [employer]. Cannot reach overhead or bear wt needed to work. Filing for short term disability paperwork to be completed today First day of missed work was 09/23/2023 Filed on 10/03/23 Also reports that he was referred to a hospitality specialist the 1st appointment for this was booked for October [address] This was a result of back pain that he suffered after the fall as well. He reports today that the back pain is fine does not think he will keep this appointment. Be that as it may he is out of work due to the left shoulder pain and restricted range of motion. Since last visit he did have an appointment with the orthopedic doctor who ordered an MRI of the left shoulder which was completed on 10/23/22. I do not have this report but it has been requested. He has a follow-up visit scheduled with Orthopedics to review the results on 10/31/23 Remains out of work, wearing a sling, continues to have pain, popping, limited range of motion Needs FMLA paperwork for continuous sleeve completed today [facility] Medical History (Updated 10/25/23 @ 10:21 by Sheryl Harris, [facility]) H/O nephrolithotomy with removal of calculi History of kidney stones ADHD Tourette syndrome Asthma Asthma Surgical History (Updated 10/25/23 @ 09:53 by Linda Sánchez MA) No pertinent past surgical history Family History Mother HTN (hypertension) Maternal Grandmother Asthenia HTN (hypertension) Diabetes Other Mental health disorder Social History Household Members: Family Housing: Apartment Do you presently have visiting nurse or other home services: No Alcohol intake: never Patient Tobacco Use Status: Former Tobacco user Tobacco use type: Cigarette Cigarettes Per Day: 7 e-Cigarette/Vaping Use: Never Used Second Hand Smoke Exposure: Yes Substance Use Type: Marijuana service: No Current occupational status: employed Current occupation: [employer] Cognitive needs: No Hearing needs: No Vision needs: Yes Questionnaire Thrive Questionnaire Date Thrive assessed: 10/17/23 Currently or been in a relationship where the following occur: no concerns reported THRIVE Score: 0 PARAMJIT-7 AMB Questionnaire PARAMJIT-7 Date PARAMJIT - 7 assessed: 10/17/23 Source: Developed by Drs. Pollo Castro, Bambi iNeves, Maxime Umanzor and colleagues, with an educational erin from [employer]. Review of Systems Const All systems reviewed & are unremarkable except as noted in HPI and below Physical exam (Primary Care) Vital Signs: Last Vital Signs Temp 97.6 F 10/25/23 09:42 Pulse 78 10/25/23 09:42 Resp 13 10/25/23 09:42 BP 122/82 10/25/23 09:42 Pulse Ox 99 10/25/23 09:42 Oxygen Delivery Method Room Air 10/25/23 09:42 BMI result Body Mass Index 39.0 Tobacco/Smoking Status: Tobacco use Status Tobacco use date assessed 10/17/23 10/25/23 09:54 Patient Tobacco Use Status Former Tobacco user 10/25/23 09:54 Tobacco use type Cigarette 10/25/23 09:54 e-Cigarette/Vaping Use Never Used 10/25/23 09:54 Thrive Assessment: Date of Thrive Assessment Date Thrive assessed 10/17/23 10/25/23 09:54 Currently or been in a relationship where the following occur: no concerns reported Assessment and Plan Assessment & Plan (1) Encounters for administrative purpose: Comment: Short-term disability paperwork for employer completed previously. FMLA paperwork completed today during visit. Code(s): Z02.9 - Encounter for administrative examinations, unspecified (2) Injury of left shoulder: Comment: FF'd by ANASTACIO, MRI 10/23/22, Next ortho f/u 10/31/23. Remains out of work on cont leave. Code(s): S49.92XA - Unspecified injury of left shoulder and upper arm, initial encounter Qualifiers: Encounter type: sequela Qualified Code(s): S49.92XS - Unspecified injury of left shoulder and upper arm, sequela Plan: Total time spent caring for the patient today was 30 minutes. This includes time spent before the visit reviewing the chart, time spent during the visit, and time spent after the visit on documentation This note is constructed using voice recognition software. While every effort has been made to ensure accuracy in hide buyer, still errors may have been included Sometimes, these errors may affect the content or meaning of the given sentence . Coding Level of Care Code Est Pt Level 4 (38657) Diagnoses Encounters for administrative purpose Z02.9 Injury of left shoulder, sequela S49.92XS Encounter type: sequela
== END 2023-10-25 10:47 | disposition home or self-care (01) ==
PROVIDERS: PCP Nurse Practitioner Family; Visit Provider Nurse Practitioner Family
DX: S49.92XD Unspecified injury of left shoulder and upper arm, subsequent encounter (principal); Z04.2 Encounter for examination and observation following work accident
CPT/HCPCS: 99214

== ENCOUNTER 2023-11-14 11:19 | Outpatient (AMB) | payer OTHER, SELFPAY ==
--- NOTE | 2023-11-14 11:23 | MHC.PC.OV ---
Vital Signs 11/14/23 11:32 Height 5 ft 5 in Weight 235 lb 8 oz BMI 39.2 BP 134/82 Blood Pressure Location Rt brachial Position Sitting Pulse 74 Pulse Source Pulse Oximeter Pulse Oximetry (%) 95 Oxygen Delivery Method Room Air Intake Visit Reasons: Mgmt of chronic conditions Intake Note: Patient is here requesting blood work to check for cancer, and refill of asthma pump. Patient is requesting nebulizer also. Allergies penicillin V Allergy (Verified 11/14/23 12:13) Rash Penicillins Allergy (Verified 11/14/23 12:13) Rash Medication List - Last Reconciled 11/14/23 by NATALIE Staton- albuterol sulfate 90 mcg/actuation 2 inhalations inhalation Q4-6H PRN Tobacco use date assessed: 11/14/23 HPI HPI Comments History of Present Illness Details 33-year-old male With nephrolithiasis status post cystoscopy, ureteroscopy, retro, laser on the right side with stenting August of 2021,ADHD, asthma, Tourette's, marijuana use, tobacco use, hx of incarceration Specialist: [facility] Health Maintenance: Declines flu, UTD on Tdap Here today to est care Would like labs for routine screening Needs refill on NAOMI. Needs Neb and meds to use at home. Reports that his asthma is well controlled. He uses intermittently. Likes to use nebulizer at home and likes to keep his HFA in the car with him Pain in R knee, worse w/ driving, started 1 week ago, feels like a pop. Intermittent. Taking 3gm/APAP w/o relief. Also reports blurred vision would like a referral [facility] Medical History (Updated 11/14/23 @ 17:38 by NATALIE Staton-LOUISE) H/O nephrolithotomy with removal of calculi History of kidney stones ADHD Tourette syndrome Asthma Surgical History (Updated 10/25/23 @ 09:53 by Linda Sánchez MA) No pertinent past surgical history Family History Mother HTN (hypertension) Maternal Grandmother Asthenia HTN (hypertension) Diabetes Other Mental health disorder Social History Household Members: Family Housing: Apartment Do you presently have visiting nurse or other home services: No Alcohol intake: never Patient Tobacco Use Status: Former Tobacco user Tobacco use type: Cigarette Cigarettes Per Day: 7 e-Cigarette/Vaping Use: Never Used Second Hand Smoke Exposure: Yes Substance Use Type: Marijuana service: No Current occupational status: employed Current occupation: [employer] Cognitive needs: No Hearing needs: No Vision needs: Yes Questionnaire Thrive Questionnaire Date Thrive assessed: 10/17/23 PARAMJIT-7 AMB Questionnaire PARAMJIT-7 Date PARAMJIT - 7 assessed: 10/17/23 Source: Developed by Drs. Pollo Castro, Bambi Nieves, Maxime Umanzor and colleagues, with an educational erin from [employer]. ACT Questionnaire In the past 4 weeks, how much of the time did your asthma keep you from getting as much done at work, school or at home?: Some of the time During the past 4 weeks, how often have you had shortness of breath?: Once a day During the past 4 weeks, how often did your asthma symptoms wake you up at night or earlier than usual in the morning?: 4 or more nights a week During the past 4 weeks, how often have you had to use your rescue inhaler or nebulizer medication?: Not at all (Patient does not have inaler or nebulizer.) How would you rate your asthma control during the past 4 weeks?: Somewhat controlled Score: 14 Review of Systems Const All systems reviewed & are unremarkable except as noted in HPI and below Physical exam (Primary Care) Vital Signs: Last Vital Signs Pulse 74 11/14/23 11:32 BP 134/82 11/14/23 11:32 Pulse Ox 95 11/14/23 11:32 Oxygen Delivery Method Room Air 11/14/23 11:32 BMI result Body Mass Index 39.2 Tobacco/Smoking Status: Tobacco use Status Tobacco use date assessed 11/14/23 11/14/23 11:45 Patient Tobacco Use Status Former Tobacco user 11/14/23 11:25 Tobacco use type Cigarette 11/14/23 11:25 e-Cigarette/Vaping Use Never Used 11/14/23 11:25 Thrive Assessment: Date of Thrive Assessment Date Thrive assessed 10/17/23 11/14/23 11:25 Const Other: Awake alert oriented Sclera is nonicteric bilat, EOMI Mucous membranes moist Regular rate and rhythm Lung sounds clear to auscultation bilat Right lower extremity within normal limits. Neurovascularly intact. No obvious deformity. Weightbearing normal Assessment and Plan Assessment & Plan (1) Mild intermittent asthma in adult without complication: Comment: Well controlled with p.r.n. use of Naomi. He provided him with a prescription for a nebulizer to use at home and also refilled as HFA. Code(s): J45.20 - Mild intermittent asthma, uncomplicated (2) Laboratory exam ordered as part of routine general medical examination: Code(s): Z00.00 - Encounter for general adult medical examination without abnormal findings (3) Instability of both knee joints: Code(s): M25.361 - Other instability, right knee; M25.362 - Other instability, left knee Plan: Would like a referral to Orthopedics. He is currently active with [facility] and therefore referral was placed therefore convenience (4) Blurred vision: Code(s): H53.8 - Other visual disturbances Plan: Per request referred [facility] Advised to follow up in a few weeks to review his labs. Sooner if needed Total time spent caring for the patient today was 45 minutes. This includes time spent before the visit reviewing the chart, time spent during the visit, and time spent after the visit on documentation This note is constructed using voice recognition software. While every effort has been made to ensure accuracy in command and control officer, still errors may have been included Sometimes, these errors may affect the content or meaning of the given sentence . Orders: Orders Microalbumin, Random (w Creat) Today J45.20 - Mild intermittent asthma, uncomplicated, Z00.00 - Encounter for general adult medical examination without abnormal findings TSH reflex Free T4 Today J45.20 - Mild intermittent asthma, uncomplicated, Z00.00 - Encounter for general adult medical examination without abnormal findings Vitamin D 1,25 dihydroxy Today J45.20 - Mild intermittent asthma, uncomplicated, Z00.00 - Encounter for general adult medical examination without abnormal findings LDL Cholesterol Direct Today J45.20 - Mild intermittent asthma, uncomplicated, Z00.00 - Encounter for general adult medical examination without abnormal findings Comprehensive Met. Panel Today J45.20 - Mild intermittent asthma, uncomplicated, Z00.00 - Encounter for general adult medical examination without abnormal findings Referrals Orthopedics Referral M25.361 - Other instability, right knee, M25.362 - Other instability, left knee Ophthalmology Referral H53.8 - Other visual disturbances Medications: New nebulizers As directed 1 ea 0RF J45.20 - Mild intermittent asthma, uncomplicated albuterol sulfate 90 mcg/actuation 2 inhalations inhalation Q4-6H PRN 1 ea 0RF shortness of breath 30 days albuterol sulfate 0.63 mg (3 mL) inhalation QID PRN 75 mL 1RF shortness of breath or wheezing Review Flu Vaccine not done: patient reason Coding Level of Care Code Est Pt Level 5 (59390) Diagnoses Mild intermittent asthma in adult without complication J45.20 Laboratory exam ordered as part of routine general medical examination Z00.00 Instability of both knee joints M25.361; M25.362 Blurred vision H53.8
[2023-11-14 11:32] VITALS: BP 134/82; PULSE 74; O2SAT 95; BMI 39.2
== END 2023-11-14 12:42 | disposition home or self-care (01) ==
PROVIDERS: PCP Nurse Practitioner Family; Visit Provider Nurse Practitioner Family
DX: J45.20 Mild intermittent asthma, uncomplicated (principal); M25.361 Other instability, right knee; M25.362 Other instability, left knee; H53.8 Other visual disturbances
CPT/HCPCS: 99215

== ENCOUNTER 2023-11-14 12:32 | Outpatient (REF) | payer OTHER, SELFPAY ==
[2023-11-14 14:57] LABS: Creatinine Urine 138.27 mg/dL; Microalbum/Creatinine Ratio Ur 15.1 ug/mg cr (<30)
[2023-11-14 15:01] LABS: Alanine Aminotransferase 31 U/L (0-40); Albumin Level 4.4 g/dL (3.5-5.0); Alkaline Phosphatase 77 U/L (39-117); Anion Gap 11 (12-20); Aspartate Amino Transferase 14 U/L (5-37); Bilirubin Total 0.4 mg/dL (0.0-1.0); Blood Urea Nitrogen 13 mg/dL (9-16); Calcium 9.8 mg/dL (8.4-10.2); Carbon Dioxide 28 mmol/L (22-29); Chloride 107 mmol/L (96-108); Estimated Glomerular Filt Rate > 60; Glucose Random 96 mg/dL (60-115); Potassium 3.9 mmol/L (3.3-5.1); Sodium 142 mmol/L (135-145); Total Protein 7.5 g/dL (6.5-8.0)
[2023-11-14 15:25] LABS: TSH reflex Free T4 0.91 uIU/mL (0.32-4.0)
[2023-11-16 06:44] LABS: LDL Cholesterol Direct 135 mg/dL (<100)
[2023-11-19 17:54] LABS: VITAMIN D (1,25 OH) D3 49 pg/mL; Vit D (1,25-Dihydroxy) Total 49 pg/mL (18-72); Vitamin D (1,25 OH) D2 <8 pg/mL
== END 2023-11-14 12:33 | disposition home or self-care (01) ==
LOC: HO.WFDLDS 12:32
PROVIDERS: Visit Provider Nurse Practitioner Family
DX: Z00.00 Encounter for general adult medical examination without abnormal findings (principal); J45.20 Mild intermittent asthma, uncomplicated
CPT/HCPCS: 36415; 80053; 82043; 82570; 82652; 83721; 84443

== ENCOUNTER 2024-09-17 10:06 | Outpatient (AMB) | payer OTHER, SELFPAY ==
[2024-09-17 10:27] VITALS: BP 122/80; PULSE 78; O2SAT 96; BMI 38.4
--- NOTE | 2024-09-17 10:27 | MHC.PC.OV ---
Vital Signs 09/17/24 10:27 Height 5 ft 5 in Weight 231 lb BMI 38.4 BP 122/80 Blood Pressure Location Rt brachial Position Sitting Pulse 78 Pulse Source Pulse Oximeter Pulse Oximetry (%) 96 Oxygen Delivery Method Room Air Intake Visit Reasons: Tourettes Intake Note: patient is here to request medication for tourettes, pt states hes been experiencing more twitching around people than normal Allergies penicillin V Allergy (Verified 09/17/24 11:26) Rash Penicillins Allergy (Verified 09/17/24 11:26) Rash Medication List - Last Reconciled 09/17/24 by Sheryl Harris, [facility]- albuterol sulfate 90 mcg/actuation 2 inhalations inhalation Q4-6H PRN 30 days albuterol sulfate 0.63 mg (3 mL) inhalation QID PRN nebulizers As directed Tobacco use date assessed: 11/14/23 Dental Screening Dental Screen Date: 10/25/23 HPI HPI Comments History of Present Illness Details History of Present Illness The patient is a 34-year-old male presenting with worsening symptoms of Tourette Syndrome and concerns about chest pain. He reports a recent increase in motor tics attributed to increased stress secondary to job loss and ongoing disputes regarding disability and social security. The patient indicates that clonidine was effective in managing Tourette Syndrome symptoms during his youth. He is interested in resuming this medication. Evaluation of verbal tics was not necessary as the patient only experiences motor tics at present. Additionally, the patient reports frequent, intense chest pain not clearly linked to anxiety, occurring during various activities, including intercourse. Past medical evaluations have shown high cholesterol levels of 135, marginally above the recommended threshold. Recent blood work indicated no diabetes, kidney disease, thyroid disease, or blood disorders, and cholesterol was the only borderline issue noted. c/o witnessed sleep apnea and sleep paralysis. has never had a sleep study Health Maintenance - Cholesterol monitoring: Recent result was 135, with advice given regarding the need for continued monitoring. - Screening tests: No diabetes, kidney disease, thyroid disease, or blood disorders noted. Social History - Employment: Currently unemployed due to recent job loss. - Family: and lives with . Review of Systems - Cardiovascular: Reports intense chest pain with exertion, not related to anxiety or specific stressors. C/o feeling like his heart stops for a millisecond and then short lived palp that occur occassionaly w/o any other cardiac or neuro sx. Exam Awake alert NAD RRR LS CTAB Motor ticks involving head and shoulders noted during exam Results - Labs: Cholesterol 135 (borderline high), no diabetes, kidney disease, thyroid disease, or blood disorder. - Tests: EKG completed NSR, LVH Plan - Initiate clonidine for management of Tourette Syndrome, dosing at one tablet per day, with plans to adjust as needed. - Monitor cholesterol levels and adjust management strategies as indicated based on future lipid panels. - Continue current management without changes for anxiety unless symptoms or conditions change. EKG complete check in lab sleep study Patient was informed and verbally consented to the use of an ambient scribe for clinic note documentation during this visit. Discussion Notes I discussed the patient's worsening Tourette Syndrome and the recent increase in motor tics due to stress and recent job loss. We agreed to restart clonidine, as it was previously effective. I explained the importance of adherence to the prescribed dose and advised the patient to report any side effects. We also discussed the patient's chest pain, noting its occurrence outside of anxiety contexts; thus, I recommended an EKG to further assess cardiac health. I reviewed recent lab results, highlighting the borderline cholesterol, and discussed the need for regular monitoring of lipid levels. I assured the patient that current results do not indicate diabetes or other diseases. Finally, we talked about the lack of family history in his case, and emphasized the importance of following up regularly to monitor both current issues and overall health. RTO 8 weeks to fu on sleep study and clonidine This note is constructed using voice recognition software. While every effort has been made to ensure accuracy in head neck surgeon, still errors may have been included Sometimes, these errors may affect the content or meaning of the given sentence . Total time spent caring for the patient today was 40 minutes. This includes time spent before the visit reviewing the chart, time spent during the visit, and time spent after the visit on documentation [facility] Medical History (Updated 09/18/24 @ 16:39 by Sheryl Harris [facility]) H/O nephrolithotomy with removal of calculi History of kidney stones ADHD Tourette syndrome Asthma Surgical History No pertinent past surgical history Family History Mother HTN (hypertension) Maternal Grandmother Asthenia HTN (hypertension) Diabetes Other Mental health disorder Social History Household Members: Family Housing: Apartment Do you presently have visiting nurse or other home services: No Alcohol intake: never Patient Tobacco Use Status: Former Tobacco user Tobacco use type: Cigarette Cigarettes Per Day: 7 e-Cigarette/Vaping Use: Never Used Second Hand Smoke Exposure: Yes Substance Use Type: Marijuana service: No Current occupational status: employed Current occupation: [employer] Cognitive needs: No Hearing needs: No Vision needs: Yes Questionnaire PHQ-9 Over the last 2 weeks, how often have you been bothered by any of the following problems? 1. Little interest or pleasure in doing things: more than half the days 2. Feeling down, depressed, or hopeless: several days 3. Trouble falling or staying asleep, or sleeping too much: nearly every day 4. Feeling tired or having little energy: several days 5. Poor appetite or overeating: several days 6. Feeling bad about yourself - or that you are a failure or have let yourself or your family down: nearly every day 7. Trouble concentrating on things, such as reading the newspaper or watching television: several days 8. Moving or speaking so slowly that other people could have noticed. Or the opposite - being so fidgety or restless that you have been moving around a lot more than usual: not at all 9. Thoughts that you would be better off or of hurting yourself in some way: not at all Total score: 12 Depression Screening Interpretation: Positive Depression Screening Done: Yes 77137 - PHQ-9 Billing: Yes Source: Developed by Drs. Pollo Castro, Bambi Nieves, Maxime Umanzor and colleagues, with an educational erin from [employer]. Thrive Questionnaire Date Thrive assessed: 09/17/24 I am a: Patient What is your living situation today?: I have a steady place to live Within the past 12 months, did the food you bought not last and you didn't have the money to get more?: Sometimes True Within the past 12 months, did you worry whether your food would run out before you got money to buy more?: Sometimes True Do you have trouble paying for medicines?: Yes Do you have trouble getting transportation to medical appointments?: No Do you have trouble paying your heating and electricity bill?: No Do you have trouble taking care of your child, family member or friend?: I choose not to answer this question Do you have trouble with day-to-day activities such as bathing, preparing meals, shopping, managing finances, etc.?: I choose not to answer this question Are you currently unemployed and looking for a job?: No Are you interested in more education?: No Please select the resources that you would like help with: None Currently or been in a relationship where the following occur: I choose not to answer THRIVE Score: 2 AUDIT C Alcohol Use Questionnaire (AUDIT-C) 1. How often do you have a drink containing alcohol?: Never 2. How many drinks containing alcohol do you have on a typical day when you are drinking?: 1 or 2 3. How often do you have six or more drinks on one occasion?: Never Total Score: 0 Score Reviewed/Action Taken: Yes PARAMJIT-7 AMB Questionnaire PARAMJIT-7 Date PARAMJIT - 7 assessed: 09/17/24 Feeling nervous, anxious, or on edge: 0 = Not at all Not being able to stop or control worryin = Not at all Worrying too much about different things: 0 = Not at all Trouble relaxin = Not at all Being so restless that it is hard to sit still: 0 = Not at all Becoming easily annoyed or irritable: 0 = Not at all Feeling afraid as if something awful might happen: 0 = Not at all Total PARAMJIT-7 score (0-4 normal; 5-9 mild; 10-14 moderate; 15-21 severe): 0 Source: Developed by Drs. Pollo Castro, Bambi Nieves, Maxime Umanzor and colleagues, with an educational erin from [employer]. PARAMJIT-7 Assessment Billing PARAMJIT-7 Assessment Tool: PARAMIJT-7 Assessment 69178 Physical exam (Primary Care) Vital Signs: Last Vital Signs Pulse 78 09/17/24 10:27 BP 122/80 09/17/24 10:27 Pulse Ox 96 09/17/24 10:27 Oxygen Delivery Method Room Air 09/17/24 10:27 BMI result Body Mass Index 38.4 Tobacco/Smoking Status: Tobacco use Status Tobacco use date assessed 11/14/23 09/17/24 10:28 Patient Tobacco Use Status Former Tobacco user 09/17/24 10:28 Tobacco use type Cigarette 09/17/24 10:28 e-Cigarette/Vaping Use Never Used 09/17/24 10:28 PHQ-9: PHQ-9 Score PHQ-9: Total score 12 09/17/24 11:29 Depression Screening Interpretation: Positive Thrive Assessment: Date of Thrive Assessment Date Thrive assessed 09/17/24 09/17/24 10:33 Currently or been in a relationship where the following occur: I choose not to answer Office Procedures EKG [id number], Complete Coding Level of Care Code Est Pt Level 5 (77124) Complex EM visit Add On G2211 Diagnoses Tourette syndrome F95.2 Sleep paralysis G47.8 Witnessed episode of apnea R06.81 LVH (left ventricular hypertrophy) I51.7 PVC (premature ventricular contraction) I49.3 Exertional chest pain R07.9 CPT Codes EKG - CPT: [id number], Complete ([id number]) Additional Codes PARAMJIT-7 Assessment Billing - PARAMJIT-7 Assessment Tool: PARAMJIT-7 Assessment 16371 ([id number]) PHQ-9 - 08278 - PHQ-9 Billing: Yes ([id number]) Assessment & Plan Assessment & Plan (1) Tourette syndrome: Code(s): F95.2 - Tourette's disorder Category: Medical (2) Sleep paralysis: Code(s): G47.8 - Other sleep disorders Category: Medical (3) Witnessed episode of apnea: Code(s): R06.81 - Apnea, not elsewhere classified Category: Medical (4) LVH (left ventricular hypertrophy): Code(s): I51.7 - Cardiomegaly Category: Medical (5) PVC (premature ventricular contraction): Code(s): I49.3 - Ventricular premature depolarization Category: Medical (6) Exertional chest pain: Code(s): R07.9 - Chest pain, unspecified Category: Medical Plan . Orders: Orders RT PSG in-lab sleep study 09/17/24 G47.8 - Other sleep disorders, I51.7 - Cardiomegaly, R06.81 - Apnea, not elsewhere classified AMB EKG-In Office 09/17/24 Z13.6 - Encounter for screening for cardiovascular disorders Medications: New clonidine HCl ER 0.1 mg PO BEDTIME 90 tabs 0RF
== END 2024-09-17 12:09 | disposition home or self-care (01) ==
PROVIDERS: PCP Nurse Practitioner Family; Visit Provider Nurse Practitioner Family
DX: R06.81 Apnea, not elsewhere classified (principal); F95.2 Tourette's disorder; G47.8 Other sleep disorders; I51.7 Cardiomegaly; I49.3 Ventricular premature depolarization; R07.9 Chest pain, unspecified

== ENCOUNTER 2024-11-03 18:15 | Emergency (ER) | payer OTHER, SELFPAY ==
--- NOTE | ~2024-11-03 | XR_ITS ---
CLINICAL HISTORY: low back pain 3 views lumbar spine Comparison: None Findings: Straightening of normal lumbar lordosis. No acute fractures or dislocation. No significant degenerative change. IMPRESSION: No acute findings. This document has been electronically signed by: Ary Simeon MD on 11/03/2024 19:22:12
[2024-11-03 18:42] VITALS: BP 120/67; PULSE 105; RESP 18; TEMP 36.8; O2SAT 100; BMI 36.8
--- NOTE | 2024-11-03 18:42 | ED.BACK ---
HPI - Back Pain/Injury General Chief Complaint: Back Pain/Injury Stated Complaint: back pain Time Seen by Provider: 11/03/24 20:42 Source: patient Mode of arrival: ambulatory Limitations: no limitations History of Present Illness ED Provider: Dr. Ashok Maher HPI Narrative: 34-year-old male with a history of Tourette's, PVC, asthma presenting to the emergency department for evaluation of low back radiating down his right leg with a associated right leg numbness/tingling this with symptoms occurring after he was sledding with the children. Patient was sliding down the hill on his abdomen and hit a bump a proximally 3 weeks ago. Patient states over the last 1-1/2 weeks the pain is gotten worse. He now has pain in his right lower back with spasm of these muscles. The pain radiates down the anterior aspect of the thigh all the way down to his foot. He denies weakness. He denied loss of bowel or bladder control. Patient denied fever, chills or fatigue. He denies injection drug use. Patient states he has been taking ibuprofen and Tylenol with no relief his pain. He states the pain is severe in his now 06/27. Related Data Previous Rx's ?Medication ?Instructions ?Recorded albuterol sulfate 0.63 mg/3 mL 0.63 mg (3 mL) inhalation QID PRN 11/14/23 solution for nebulization shortness of breath or wheezing #75 mL albuterol sulfate 90 mcg/actuation 2 inh inhalation Q4-6H PRN 11/14/23 breath activated powder shortness of breath 30 days #1 ea inhaler,sensor nebulizers #1 ea 11/14/23 clonidine HCl 0.1 mg 0.1 mg PO BEDTIME #90 tabs 09/17/24 tablet,extended release,12 hr acetaminophen 500 mg tablet 1,000 mg (2 x 500 mg) PO Q6H PRN 11/03/24 (Tylenol Extra Strength) pain #20 tabs cyclobenzaprine 10 mg tablet 10 mg PO TID PRN muscle pain or 11/03/24 spasm #20 tabs morphine 15 mg immediate release 15 mg PO Q8H PRN pain #10 tabs 11/03/24 tablet prednisone 20 mg tablet 60 mg (3 x 20 mg) PO DAILY 7 days 11/03/24 #21 tabs Allergies Allergy/AdvReac Type Severity Reaction Status Date / Time penicillin V Allergy Rash Verified 11/03/24 18:44 Penicillins Allergy Rash Verified 11/03/24 18:44 Review of Systems Review of Systems: Yes all other systems are reviewed and are negative [facility] Past Medical History [facility] Narrative: Social history: He denies injection drug use. Medical History (Updated 11/03/24 @ 22:25 by Ashok Maher MD) H/O nephrolithotomy with removal of calculi History of kidney stones ADHD Tourette syndrome Asthma Surgical History No pertinent past surgical history Family History Family History Mother HTN (hypertension) Maternal Grandmother Asthenia HTN (hypertension) Diabetes Other Mental health disorder Social History Social History Household Members: Family Housing: Apartment Do you presently have visiting nurse or other home services: No Alcohol intake: never Patient Tobacco Use Status: Former Tobacco user Tobacco use type: Cigarette Cigarettes Per Day: 7 Smoked in Last 30 Days: Yes e-Cigarette/Vaping Use: Never Used Second Hand Smoke Exposure: Yes Use of substances other than those prescribed or required for medical reasons: Yes Substance Use Type: Marijuana Advance Directives: No Advance Directives Information Provided: Yes service: No Current occupational status: employed Current occupation: [employer] Cognitive needs: No Hearing needs: No Vision needs: Yes Physical Exam Vital Signs: Vital Signs: Last Vital Signs Temp 98.3 F 11/03/24 18:42 Pulse 105 H 11/03/24 18:42 Resp 18 11/03/24 18:42 BP 120/67 11/03/24 18:42 Pulse Ox 100 11/03/24 18:42 O2 Del Method Room Air 11/03/24 18:42 BMI result Body Mass Index 36.8 Vital signs were normal Exam: General: Awake, alert in no distress, the patient was unable to sit secondary to his back pain Head: Normocephalic, atraumatic Back: The patient has tenderness with muscle spasm and of the right paraspinal muscles in the lumbar sacral area, he was no point tenderness palpation over his vertebrae. Patient was able to walk around in the emergency department but does appear to be in pain while he was walking Extremities: no deformities, moves all extremities symmetrically Neuro: Awake, alert, oriented, normal speech, cranial nerves intact, moves all extremities symmetrically Course Course Course Narrative: This is a Rapid Medical Exam performed in triage by Estee Stallings PA-C. Full HPI, ROS and PE to be performed by primary ED provider. 34yo M w/pmhx Tourette's, PVC, asthma presenting to the ED c/o low back radiating down RLE with associated RLE numbness/tingling s/p sliding with children on abdomen and hitting bump 3 weeks ago. denies incontinence/retention PE: ambulating w/antalgic gait, no midline spinous tenderness. + right-sided paraspinal lumbar tenderness Plan: XR, pain control Medical Decision Making Medical Decision Making MDM Narrative: 34-year-old male with a history of Tourette's, PVC, asthma presenting to the emergency department for evaluation of low back radiating down his right leg with a associated right leg numbness/tingling this with symptoms occurring after he was sledding with the children 3 weeks prior with increased pain x1 1-1/2 weeks. Patient states that the pain is now radiating down the anterior aspect of his thigh to his foot with numbness in his leg with no weakness, loss of bowel or bladder control. Patient was been taking Tylenol ibuprofen without any relief his pain. He denies injection drug use. Vital signs were normal. Physical examination revealed tenderness palpation of the paraspinal muscles in the lumbar sacral area right greater than left with spasm of these muscles. Patient seems to have no significant weakness of his extremities , can stand and walk but does appear to be in pain when he was walking. Differential diagnosis: ?Includes but is not limited to lumbar compression fracture, sciatica, ruptured disc, spinal nerve impingement, spinal nerve inflammation Course: It was time I suspect that the patient has lumbar sacral muscle injury with spasm and radiculopathy down his right leg. I did discuss this with the patient. Patient was started on prednisone 60 mg once a day for 7 days, Tylenol 1000 mg every 6 hours as needed for pain, Flexeril 10 mg every 6 hours as needed for pain or spasm and for pain not relieved by these medications he was prescribed morphine 15 mg every 6 hours dispense 10 tablets. Patient was given printed and verbal instructions and discharged home. Admission/Observation Consideration of admission/observation: Escalation of care including admission/observation considered (No) Radiology Impression Discussion of test interpretation with radiology: I have reviewed the radiologist's reading. Radiologist Impression: 3 views lumbar spine Comparison: None Findings: Straightening of normal lumbar lordosis. No acute fractures or dislocation. No significant degenerative change. IMPRESSION: No acute findings. This document has been electronically signed by: Ary Simeon MD on 11/03/2024 19:22:12 Dictated By: Ary Simeon MD Prescription Management I considered prescription management with: Pain Medication (Morphine) and Other (Anti-inflammatory steroid: Prednisone; anti spasmodic: Flexeril) Chronic Conditions Patient?s care impacted by: Other (Asthma) Discharge Plan Discharge Clinical Impression: Low back pain radiating down leg Patient Disposition: Home, Self-Care Instructions: Lumbar Radiculopathy (ED) Additional Instructions: The x-rays of your back revealed no broken bones was her reassuring. You most likely hurt the muscles and the discs of your lower back and now have inflammation of the nerves that go down your right leg. Take prednisone 20 mg pills, 3 pills once a day for 7 days. While you ?are taking prednisone, do not take any NSAIDs (Motrin, Advil, ibuprofen, Aleve, naproxen). Take Tylenol (acetaminophen) 2 pills every 6 hours as needed for pain. For pain not relieved by prednisone or Tylenol take morphine 15 mg pills, 1 pill every 6 hours as needed for pain. This medication will make you sleepy, do not drive or work while taking this medication. Morphine is a narcotic medication and can be addicting. If you are concerned about addiction you can ask the pharmacist for less pills or do not get this prescription filled. Take Flexeril (cyclobenzaprine) 10 mg pills, 1 pill every 6-8 hours as needed for pain or spasm. ?This medication will make you sleepy. ?Do not drive or work while taking this medication. Follow-up with your doctor in 1 week. If you are not better than your doctor may consider getting an MRI as an outpatient of your lower back. Please return to the emergency department if your symptoms get worse or if you develop any symptoms that are concerning to you. Prescriptions: New cyclobenzaprine 10 mg tablet 10 mg PO TID PRN (Reason: muscle pain or spasm) Qty: 20 0RF prednisone 20 mg tablet 60 mg PO DAILY 7 Days Qty: 21 0RF morphine 15 mg tablet 15 mg PO Q8H PRN (Reason: pain) Qty: 10 0RF Rx Instructions: Partial Fill upon patient request. acetaminophen [Tylenol Extra Strength] 500 mg tablet 1,000 mg PO Q6H PRN (Reason: pain) Qty: 20 0RF No Action albuterol sulfate 90 mcg/actuation aero powdr breath act w/sensor 2 inh inhalation Q4-6H PRN (Reason: shortness of breath) 30 Days Qty: 1 0RF albuterol sulfate 0.63 mg/3 mL solution for nebulization 0.63 mg inhalation QID PRN (Reason: shortness of breath or wheezing) Qty: 75 1RF (DME) nebulizers Misc See Rx Instructions .Route Qty: 1 0RF Rx Instructions: As directed clonidine HCl 0.1 mg tablet extended release 12 hr 0.1 mg PO BEDTIME Qty: 90 0RF Print Language: Slovenian
--- NOTE | 2024-11-03 20:25 | PC.NURSE ---
Pt a&ox4, no signs of distress. Pt reports he went sledding 3 wks ago and injured himself and pain has been progressively getting worse Pt reports 7/10 back pain that radiates to right leg Plan of care ongoing.
[2024-11-03] MEDS: Morphine Sulfate Immed Release 15 MG TABLET PO (22:42)
[2024-11-03] MEDS: predniSONE 20 MG TABLET 60 MG PO (22:42)
[2024-11-03] MEDS: Cyclobenzaprine HCl 10 MG TABLET PO (22:42)
[2024-11-03 22:52] VITALS: BP 155/81; PULSE 76; RESP 14; TEMP 37; O2SAT 98
== END 2024-11-03 22:54 | disposition home or self-care (01) ==
PROVIDERS: Emergency Provider Emergency Medicine Emergency Medical Services; PCP Nurse Practitioner Family
DX: M54.50 Low back pain, unspecified (principal); M79.604 Pain in right leg
CPT/HCPCS: 72100; 99283; 99284

== ENCOUNTER → 2024-11-03 18:44 | Outpatient (BNV) | payer OTHER, SELFPAY | PROVIDERS: Visit Provider Student in an Organized Health Care Education/Training Program | DX: M54.50 Low back pain, unspecified (principal) | CPT/HCPCS: 72100 ==